=== PATIENT | male | born 1950 | race Caucasian/White ===

== ENCOUNTER 2019-05-29 09:22 | Inpatient (IN) | payer MEDICARE ==
[2019-05-29] MEDS ORDERED: SODIUM CHLORIDE 0.9% 1,000 ML IV STA (10:08)
--- NOTE | 2019-05-29 10:11 | ED ---
General Adult HPI - General Chief complaint: Altered Mental Status Stated complaint: seizure vs stroke Time Seen by Provider: 05/29/19 09:30 Source: patient, EMS Mode of arrival: EMS Limitations: no limitations - History of Present Illness Initial comments: Dictation was produced using [employer] dictation software. please excuse any gramm atical, word or spelling errors. Chief Complaint: 68-year-old male presents after episode of syncope. History of Present Illness: 68-year-old man is brought in by EMS. Experience in episode of syncope. Patient is brought in by family members. reports that they went for a walk for approximately 20 minutes. They came back only patient is sitting on the couch. He was then noted to have episode where he became stiff and his right face twitching. Patient denies any head trauma. According to patient was a little confused after he came back to. He was unconscious for approximately 1 minute. Patient has no history of seizures. Patient has no complaints at this time. Denies any headache. Denies any numbness tingling or paresthesias. The ROS documented in this emergency department record has been reviewed and confirmed by me. Those systems with pertinent positive or negative responses have been documented in the HPI. All other systems are other negative and/or noncontributory. PHYSICAL EXAM: General Impression: Alert and oriented x3, not in acute distress HEENT: Normocephalic atraumatic, extra-ocular movements intact, pupils equal and reactive to light bilaterally, mucous membranes moist, no lateral tongue avulsions Cardiovascular: Heart regular rate and rhythm, S1&S2 audible, no murmurs, rubs or gallops Chest: Lungs clear to auscultation bilaterally, no rhonchi, no wheeze, no rales Abdomen: Bowel sounds present, abdomen soft, non-tender, non-distended, no organomegaly Musculoskeletal: Pulses present and equal in all extremities, no peripheral edema Motor: no focal deficits noted Neurological: CN II-XII grossly intact, no focal motor or sensory deficits noted Skin: Intact with no visualized rashes Psych: Normal affect and mood ED course: 68-year-old male presents with syncope. There is concern of dysrhythmia versus seizure. As upon arrival are within acceptable limits. EKG appears benign at the moment. No old EKG for comparison. Patient has cardiac history. He is a history of coronary artery bypass grafting Given the patient had a postictal state is more concerned of seizure versus syncope. Laboratory evaluation obtained. CBC is unremarkable. Coag panel unremarkable. Metabolic panel shows mild acidosis without an anion gap. Lactic acid is 2.1 and glucose of 217. Urinalysis shows 6 red blood cells. Patient is well-appearing at this time. Given patient's clinical presentation it's concerning for new onset seizure versus syncope secondary to cardiac etiology given significant cardiac history. Believe patient would benefit from inpatient admission at this time for neurology consultation and cardiac monitoring. Patient is agreeable to plan. Pending discussion the Dr. Martinez. EKG interpretation: Ventricular rate 83, normal sinus rhythm, OH interval 194, care is 100, QTC 453. No OH prolongation, no QTC prolongation, no ST or T-wave changes noted. . Overall, this EKG is unremarkable - Related Data Home Medications Medication Instructions Recorded Confirmed Aspirin EC [Ecotrin] 162.5 mg PO DAILY 05/29/19 05/29/19 Lisinopril [Zestril] 5 mg PO DAILY 05/29/19 05/29/19 Metoprolol Tartrate [Lopressor] 50 mg PO BID 05/29/19 05/29/19 Simvastatin [Zocor] 40 mg PO HS 05/29/19 05/29/19 glipiZIDE [Glucotrol] 5 mg PO AC-BRKFST 05/29/19 05/29/19 metFORMIN HCL 1,000 mg PO BID 05/29/19 05/29/19 Allergies Allergy/AdvReac Type Severity Reaction Status Date / Time adhesive tape AdvReac Rash/Hives Verified 05/29/19 09:39 codeine AdvReac Rash/Hives Verified 05/29/19 09:39 Review of Systems ROS Statement: Those systems with pertinent positive or pertinent negative responses have been documented in the HPI. ROS Other: All systems not noted in ROS Statement are negative. Past Medical History Past Medical History: Diabetes Mellitus, Hypertension History of Any Multi-Drug Resistant Organisms: None Reported Past Surgical History: Coronary Bypass/CABG Past Psychological History: No Psychological Hx Reported Smoking Status: Never smoker Past Alcohol Use History: Occasional Past Drug Use History: None Reported General Exam Limitations: no limitations Course Vital Signs 05/29/19 05/29/19 05/29/19 09:30 09:36 09:40 Temperature 98.4 F Pulse Rate 82 84 80 Respiratory 18 Rate Blood Pressure 145/83 145/83 166/85 O2 Sat by Pulse 98 95 97 Oximetry 05/29/19 05/29/19 05/29/19 10:10 10:20 10:30 Temperature Pulse Rate 78 78 Respiratory Rate Blood Pressure 152/77 152/77 152/77 O2 Sat by Pulse 97 96 Oximetry Medical Decision Making - Lab Data Result diagrams: 05/29/19 09:33 05/29/19 09:33 Lab Results 05/29/19 05/29/19 05/29/19 Range/Units 09:33 09:33 09:33 WBC 7.2 (3.8-10.6) k/uL RBC 4.48 (4.30-5.90) m/uL Hgb 13.8 (13.0-17.5) gm/dL Hct 41.8 (39.0-53.0) % MCV 93.2 (80.0-100.0) fL MCH 30.7 (25.0-35.0) pg MCHC 33.0 (31.0-37.0) g/dL RDW 13.6 (11.5-15.5) % Plt Count 186 (150-450) k/uL Neutrophils % 71 % Lymphocytes % 18 % Monocytes % 6 % Eosinophils % 3 % Basophils % 0 % Neutrophils # 5.1 (1.3-7.7) k/uL Lymphocytes # 1.3 (1.0-4.8) k/uL Monocytes # 0.4 (0-1.0) k/uL Eosinophils # 0.2 (0-0.7) k/uL Basophils # 0.0 (0-0.2) k/uL PT 9.8 (9.0-12.0) sec INR 0.9 (<1.2) APTT 23.0 (22.0-30.0) sec Sodium 139 (137-145) mmol/L Potassium 4.8 (3.5-5.1) mmol/L Chloride 108 H (98-107) mmol/L Carbon Dioxide 21 L (22-30) mmol/L Anion Gap 10 mmol/L BUN 21 H (9-20) mg/dL Creatinine 1.16 (0.66-1.25) mg/dL Est GFR (CKD-EPI)AfAm 76 (>60 ml/min/1.73 sqM) Est GFR (CKD-EPI)NonAf 65 (>60 ml/min/1.73 sqM) Glucose 217 H (74-99) mg/dL Plasma Lactic Acid Terry (0.7-2.0) mmol/L Calcium 9.0 (8.4-10.2) mg/dL Total Bilirubin 0.5 (0.2-1.3) mg/dL AST 59 (17-59) U/L ALT 63 (21-72) U/L Alkaline Phosphatase 55 (38-126) U/L Troponin I (0.000-0.034) ng/mL Total Protein 6.2 L (6.3-8.2) g/dL Albumin 4.0 (3.5-5.0) g/dL Urine Color Urine Appearance (Clear) Urine pH (5.0-8.0) Ur Specific [place] (1.001-1.035) Urine Protein (Negative) Urine Glucose (UA) (Negative) Urine Ketones (Negative) Urine Blood (Negative) Urine Nitrite (Negative) Urine Bilirubin (Negative) Urine Urobilinogen (<2.0) mg/dL Ur Leukocyte Esterase (Negative) Urine RBC (0-5) /hpf Urine WBC (0-5) /hpf Ur Squamous Epith Cells (0-4) /hpf Urine Bacteria (None) /hpf Hyaline Casts (0-2) /lpf Urine Mucus (None) /hpf 05/29/19 05/29/19 05/29/19 Range/Units 09:33 09:33 10:59 WBC (3.8-10.6) k/uL RBC (4.30-5.90) m/uL Hgb (13.0-17.5) gm/dL Hct (39.0-53.0) % MCV (80.0-100.0) fL MCH (25.0-35.0) pg MCHC (31.0-37.0) g/dL RDW (11.5-15.5) % Plt Count (150-450) k/uL Neutrophils % % Lymphocytes % % Monocytes % % Eosinophils % % Basophils % % Neutrophils # (1.3-7.7) k/uL Lymphocytes # (1.0-4.8) k/uL Monocytes # (0-1.0) k/uL Eosinophils # (0-0.7) k/uL Basophils # (0-0.2) k/uL PT (9.0-12.0) sec INR (<1.2) APTT (22.0-30.0) sec Sodium (137-145) mmol/L Potassium (3.5-5.1) mmol/L Chloride (98-107) mmol/L Carbon Dioxide (22-30) mmol/L Anion Gap mmol/L BUN (9-20) mg/dL Creatinine (0.66-1.25) mg/dL Est GFR (CKD-EPI)AfAm (>60 ml/min/1.73 sqM) Est GFR (CKD-EPI)NonAf (>60 ml/min/1.73 sqM) Glucose (74-99) mg/dL Plasma Lactic Acid Terry 2.1 H* (0.7-2.0) mmol/L Calcium (8.4-10.2) mg/dL Total Bilirubin (0.2-1.3) mg/dL AST (17-59) U/L ALT (21-72) U/L Alkaline Phosphatase (38-126) U/L Troponin I <0.012 (0.000-0.034) ng/mL Total Protein (6.3-8.2) g/dL Albumin (3.5-5.0) g/dL Urine Color Yellow Urine Appearance Clear (Clear) Urine pH 5.5 (5.0-8.0) Ur Specific [place] 1.023 (1.001-1.035) Urine Protein 2+ H (Negative) Urine Glucose (UA) 1+ H (Negative) Urine Ketones 1+ H (Negative) Urine Blood Trace H (Negative) Urine Nitrite Negative (Negative) Urine Bilirubin Negative (Negative) Urine Urobilinogen <2.0 (<2.0) mg/dL Ur Leukocyte Esterase Negative (Negative) Urine RBC 6 H (0-5) /hpf Urine WBC 1 (0-5) /hpf Ur Squamous Epith Cells <1 (0-4) /hpf Urine Bacteria Rare H (None) /hpf Hyaline Casts 8 H (0-2) /lpf Urine Mucus Moderate H (None) /hpf Disposition Clinical Impression: Syncope Disposition: ADMITTED IP TO THIS HOSP Condition: Fair Referrals: Luis Green DO [STAFF PHYSICIAN] - 1-2 days Decision Time: 12:32
[2019-05-29 10:32] LABS: Basophils % (A) 0 %; Eosinophils # (A) 0.2 k/uL (0-0.7); Eosinophils % (A) 3 %; HCT 41.8 % (39.0-53.0); HGB 13.8 gm/dL (13.0-17.5); Lymphocytes # (A) 1.3 k/uL (1.0-4.8); Lymphocytes % (A) 18 %; MCH 30.7 pg (25.0-35.0); MCV 93.2 fL (80.0-100.0); Mean Platelet Volume 8.6; Monocytes # (A) 0.4 k/uL (0-1.0); Monocytes % (A) 6 %; Neutrophils # (A) 5.1 k/uL (1.3-7.7); Neutrophils % (A) 71 %; Platelet Count 186 k/uL (150-450); RBC 4.48 m/uL (4.30-5.90); RDW 13.6 % (11.5-15.5); WBC 7.2 k/uL (3.8-10.6)
[2019-05-29 10:40] LABS: INR 0.9 (<1.2); Prothrombin Time 9.8 sec (9.0-12.0)
[2019-05-29 10:42] LABS: Potassium 4.8 mmol/L (3.5-5.1); Total Bilirubin 0.5 mg/dL (0.2-1.3); Total Protein 6.2 g/dL (6.3-8.2)
--- NOTE | 2019-05-29 11:59 | CT ---
EXAMINATION TYPE: CT brain wo con DATE OF EXAM: 05/29/2019 COMPARISON: None available HISTORY: 68-year-old male with syncope, Seizure vs Stroke TECHNIQUE: Examination was done in axial plane without intravenous contrast. Coronal and sagittal r econstructions performed. CT DLP: 1087.4 mGycm Automated exposure control for dose reduction was used. FINDINGS: There is no evidence of acute intracranial hemorrhage, acute ischemic changes, mass, mass-effect, or extra-axial fluid collection. There is no effacement of cerebral sulci or basal subarachnoid cister ns. There is no hydrocephalus. There is no midline shift. Carranza-white matter distinction is preserv ed. Generalized supratentorial volume loss with moderate patchy white matter hypodensities in both cerebr al hemispheres. Mild atherosclerotic calcifications within the V4 vertebral arteries and the carotid siphons. Scattered trace mucosal thickening right maxillary sinus and ethmoid air cells. Mastoid air cells wel l pneumatized. Orbits and globes are intact. IMPRESSION: Mild atrophy and moderate patchy changes of chronic small vessel ischemic disease. No acute intracran ial abnormality seen.
--- NOTE | 2019-05-29 12:04 | XR ---
EXAMINATION TYPE: XR chest 2V DATE OF EXAM: 05/29/2019 COMPARISON: NONE HISTORY: Shortness of breath TECHNIQUE: Frontal and lateral views of the chest are obtained. FINDINGS: Scattered senescent parenchymal changes noted. Hyperinflation compatible with COPD. No evidence for infiltrate. No evidence for atelectasis. Heart size is stable. Mediastinal structures are stable and grossly unremarkable. No evidence for hilar prominence. Degenerative changes dorsal spine. IMPRESSION: 1. No evidence for acute pulmonary disease.
[2019-05-29 12:15] LABS: Appearance,Urine Clear (Clear); Bacteria,Urine Rare /hpf; Bilirubin,Urine Negative (Negative); Blood,Urine Trace (Negative); Color,Urine Yellow; Glucose,Urine (UA) 1+ (Negative); Hyaline Casts,Urine 8 /lpf (0-2); Ketones,Urine 1+ (Negative); Leukocyte Esterase,Urine Negative (Negative); Mucus,Urine Moderate /hpf; Nitrite,Urine Negative (Negative); PH, Urine 5.5 (5.0-8.0); Protein,Urine 2+ (Negative); RBC,Urine 6 /hpf (0-5); Specific Gravity,Urine 1.023 (1.001-1.035); Squamous Epithelial Cell,Urine <1 /hpf (0-4); Urobilinogen,Urine <2.0 mg/dL (<2.0); WBC,Urine 1 /hpf (0-5)
[2019-05-29] MEDS ORDERED: NALOXONE 0.4 MG/ML 1 ML VIAL IV PRN (12:27)
[2019-05-29] MEDS ORDERED: LORazepam 2 MG/ML INJ IV PRN (12:29)
[2019-05-29 17:02] LABS: Glucose,Whole Blood 134 mg/dL (75-99)
--- NOTE | 2019-05-29 17:07 | P.CNNES ---
History of Present Illness Consult date: 05/29/19 Requesting physician: Rob Gray Reason for Consult: Possible seizure Chief complaint: "I passed out" History of Present Illness: This is a 68 RH male h/o CAD s/p CABG 13 years ago followed by cardiology in [place] and [place]. Patient on day of admission had gone for a walk for 20 minutes. He and his came home and watched TV. He was sitting on a recliner. He reached for his phone, suddenly felt lightheaded without vertigo, then lost consciousness. witnessed stiffening and "tremoring" of the body, but not classic tonic- clonic fashion. There was mentioning of possible right facial twitching in the ER note, but does not corroborate the above during my history taking. There was not tongue biting, bowel/bladder incontinence or post-ictal confusion. The event lasted a minute. When he came to his senses, he was able to immediately recognize his and try to make sense of what had just happened. His describes as if he were waking up from a deep sleep, but she would not say that he was confused upon awakening. He denies h/o head trauma or CO TEACHER infection. No previous history of seizure. Review of Systems I have performed a 14-point organ ROS with patient that are negative except as per HPI. Past Medical History Past Medical History: Diabetes Mellitus, Hypertension History of Any Multi-Drug Resistant Organisms: None Reported Past Surgical History: Coronary Bypass/CABG Past Psychological History: No Psychological Hx Reported Smoking Status: Former smoker Past Alcohol Use History: Occasional Past Drug Use History: None Reported Medications and Allergies Home Medications Medication Instructions Recorded Confirmed Type Aspirin EC [Ecotrin] 162.5 mg PO DAILY 05/29/19 05/29/19 History Lisinopril [Zestril] 5 mg PO DAILY 05/29/19 05/29/19 History Metoprolol Tartrate [Lopressor] 50 mg PO BID 05/29/19 05/29/19 History Simvastatin [Zocor] 40 mg PO HS 05/29/19 05/29/19 History glipiZIDE [Glucotrol] 5 mg PO AC-BRKFST 05/29/19 05/29/19 History metFORMIN HCL 1,000 mg PO BID 05/29/19 05/29/19 History Allergies Allergy/AdvReac Type Severity Reaction Status Date / Time adhesive tape AdvReac Rash/Hives Verified 05/29/19 09:39 codeine AdvReac Rash/Hives Verified 05/29/19 09:39 Physical Examination - Vital Signs Vital Signs: Vital Signs Temp Pulse Resp BP Pulse Ox 05/29/19 16:00 18 05/29/19 10:30 152/77 05/29/19 10:20 78 152/77 96 05/29/19 10:10 78 152/77 97 05/29/19 09:40 80 166/85 97 05/29/19 09:36 98.4 F 84 18 145/83 95 05/29/19 09:30 82 145/83 98 Intake and Output 05/29/19 05/29/19 05/29/19 06:59 14:59 22:59 Intake Total 160 Balance 160 Intake: Intake, IV Titration 160 Amount Sodium Chloride 0.9% 1, 160 000 ml @ 20 mls/hr IV . Q24H NAYELI Rx#:[id number] Other: Weight 99.79 kg Gen NAD Pleasant and cooperative HEENT NCAT Sclera without icterus O/P clear wo tongue laceration Neck Supple No carotid bruit Cor RRR no m/r/g Lungs CTAB Abd Soft NTND +BS Ext Warm to touch No edema Neuro MS A+Ox4 Normal fluency Able to follow all commands CN PERRL VFF no APD EOMI no nystagmus or LIAM No facial asymmetry Masseter's symm etric Hearing intact to normal voice bilaterally Speech not dysarthric Equal elevation of palate Tongue midline Sym shrug and SCM bilaterally Motor Normal bulk/tone No pronator drift or tremors Strength 5/5 sym throughout Sens Intact to LT x4 No neglect Coord No dysmetria on FTN bilaterally DTRs 2+/4 sym throughout Toes downgoing bilaterally No clonus at achilles Gait Deferred Results - Laboratory Findings CBC and BMP: 05/29/19 09:33 05/29/19 09:33 Abnormal Lab Findings: Abnormal Labs 05/29/19 05/29/19 05/29/19 09:33 09:33 10:59 Chloride 108 H Carbon Dioxide 21 L BUN 21 H Glucose 217 H Plasma Lactic Acid Terry 2.1 H* Total Protein 6.2 L Urine Protein 2+ H Urine Glucose (UA) 1+ H Urine Ketones 1+ H Urine Blood Trace H Urine RBC 6 H Urine Bacteria Rare H Hyaline Casts 8 H Urine Mucus Moderate H - Diagnostic Findings Additional findings: CT Head wo cont 05/29/19. No ICH. Nil acute. I have reviewed neuroimages myself. Assessment and Plan Assessment: Episode of unexplained loss of consciousness, favor convulsive syncope vs less l ikely epileptic seizure based on history. Other medical causes of syncope should be ruled out Plan: -MRI Brain wo natalie -Sleep/wake EEG -Given patient's cardiac history, would recommend cardiology consult -Other medical work-up for syncope deferred to primary team/internal medicine -Seizure precautions -Discussed that for the first single new-onset unprovoked seizure (if he indeed did have a seizure), provided that MRI Brain and EEG are normal, the chance of the patient having recurrent seizure would be <50%, in which case most neurologists would not commit patient to long-term AED therapy. However, patient continues to have recurrent unprovoked seizure activity, then AED therapy would be indicated. -Also discussed that every state has some type of law restricting seizure and driving. This also extends to unexplained loss of consciousness, which so far is this patient's case pending further medical work-up. Same common sense applies to engaging in any activity that may endanger patient and/or others should he have recurrent seizure activity. Patient and voice understaning, though they are appropriately concerned about how to get their RV back to [place] from [place] as they are snowbirds -d/w patient and in detail. All questions answered. Thank you for this consultation. Please call with ?. Time with Patient: Greater than 30 (Time spent in direct patient care, greater than 50% of which was spent in [id number] counseling and coordination of care: 70 minutes.)
[2019-05-29] MEDS: SODIUM CHLORIDE 0.9% 1,000 ML IV SCH (18:07)
--- NOTE | 2019-05-29 18:47 | HP ---
HISTORY AND PHYSICAL CHIEF COMPLAINT: Syncope and possible seizure. HISTORY OF PRESENT ILLNESS: This is another admission for this 68-year-old white male. He was sitting and looking at his cellphone and the next thing he remembers was waking up on the floor. His is present. He became rigid, but did not have tonic colonic movements. He also did not injure his tongue or lips and he was not incontinent. He was not diaphoretic. He had no symptoms prior to this and when he woke up, he did not have any of the symptoms and he seemed to have a fairly good memory of the events leading up to this episode. He denied any chest pain, palpitations, etc. He is diabetic, but his blood sugar is usually high. In the emergency room, his evaluation was essentially negative. He has a history of cardiac disease and he had a 4-vessel coronary artery bypass done here in the past. He has had no other symptoms. REVIEW OF SYSTEMS: He has had no followup neurologic problems, change in vision hearing, cough, hemoptysis, chest pain, pulmonary disease, pleurisy, angina, infarctions, orthopnea, PND, abdominal pain, diarrhea, melena, hematochezia, hematemesis, nausea, liver disease, renal failure, frequency, urgency and dysuria, and incontinence, etc. Past medical history, family history, personal and social history reveals that he is not allergic to any medication. He is on Lopressor 50 mg twice a day, metformin 1000 mg twice a day, glipizide 5 mg once a day, lisinopril 5 mg once a day, and aspirin. The only surgery he has had is CABG. He has a family history of heart disease, but his mother had valvular disease. He does not smoke. PHYSICAL EXAM: Blood pressure is 152/77 with a pulse of 102 and regular. Respirations of 18 and a pulse 78. He is afebrile. In general, he appeared to be slightly overweight, in no acute distress. Skin color is normal. Skin is warm, dry. Lymph nodes not enlarged. Head, ears, eyes, nose, mouth, and throat were normal. Neck veins are not distended. Thyroid was not enlarged. Carotids normal and no bruits. Chest is clear to auscultation and percussion. Cardiac exam demonstrated normal sinus rhythm and no murmurs or extra sounds. Abdomen is soft, nontender without visceromegaly or masses. Extremities normal. Neurologically he is intact. He is awake and alert. He is admitted to the hospital with diagnoses of: ADMITTING DIAGNOSES: 1. Syncopal episode, etiology unknown. 2. Rule out new onset seizure. 3. Rule out cardiac arrhythmia. 4. History of coronary artery disease status post coronary artery bypass grafting. 5. Noninsulin dependent diabetes mellitus. PLAN: 1. Bed rest. 2. IV fluids. 3. Troponin. 4. Echocardiogram. 5. Carotid duplex imaging. 6. EEG. 7. MRI of the brain. 8. Neurology consult. MMODL / IJN: [id number] /
--- NOTE | 2019-05-29 19:27 | MR ---
EXAMINATION TYPE: MR brain wo con DATE OF EXAM: 05/29/2019 COMPARISON: CT brain from earlier today HISTORY: New onset seizure TECHNIQUE: Multiplanar, multisequence imaging of the brain and brainstem is performed without IV cont rast. FINDINGS: Diffusion weighted images demonstrate no evidence of a recent infarct or other diffusion abnormality. There is no worrisome extra-axial fluid collection. Ventricular and sulcal prominence is redemonstrat ed. There are multiple scattered foci of T2 hyperintensity throughout the white matter bilaterally wi th some confluent areas noted. Finding presumed on the basis of product of proximal vessel ischemic c hange in patient of this age. T2 Star weighted images show no suspicious intraparenchymal blood produ ct. T2 coronal weighted images show hippocampal gyri to appear symmetric and felt within normal limit s. Midline structures demonstrate normal morphology. The craniocervical junction appears within normal limits. Normal vascular flow voids are present. The visualized sinuses are clear and the globes are i ntact. IMPRESSION: There is [id number] diffuse cerebral atrophy and moderate to advanced chronic small vessel ischemic change felt present.
[2019-05-29 20:08] LABS: Glucose,Whole Blood 178 mg/dL (75-99)
[2019-05-29] MEDS ORDERED: ATORVASTATIN 20 MG TAB PO SCH (21:00)
[2019-05-29] MEDS: METOPROLOL TARTRATE 50 MG TAB PO SCH (21:21)
[2019-05-29] MEDS: glipiZIDE 5 MG TAB PO SCH (21:21)
[2019-05-29] MEDS: metFORMIN 500 MG TAB PO SCH (21:21)
[2019-05-29] MEDS: LISINOPRIL 5 MG TAB PO SCH (21:21)
[2019-05-29] MEDS: INSULIN ASPART (NovoLOG) 100 UNIT/ML VIAL SQ SCH (21:22)
[2019-05-30 02:51] LABS: Cholesterol 152 mg/dL (<200); HDL Cholesterol 42 mg/dL (40-60); LDL Cholesterol,Calculated 73 mg/dL (0-99); Triglycerides 184 mg/dL (<150)
[2019-05-30 07:00] LABS: Glucose,Whole Blood 149 mg/dL (75-99)
[2019-05-30] MEDS: METOPROLOL TARTRATE 50 MG TAB PO SCH ×2 (08:40→21:14)
[2019-05-30] MEDS: INSULIN ASPART (NovoLOG) 100 UNIT/ML VIAL SQ SCH ×4 (08:41→21:59)
[2019-05-30] MEDS: metFORMIN 500 MG TAB PO SCH ×2 (08:41→18:18)
[2019-05-30] MEDS: LISINOPRIL 5 MG TAB PO SCH (08:41)
[2019-05-30] MEDS: glipiZIDE 5 MG TAB PO SCH (08:41)
[2019-05-30] MEDS ORDERED: ASPIRIN 81 MG PO SCH (09:00)
[2019-05-30 11:31] LABS: Glucose,Whole Blood 111 mg/dL (75-99)
[2019-05-30] MEDS: SODIUM CHLORIDE 0.9% 1,000 ML IV SCH (14:02)
--- NOTE | 2019-05-30 14:52 | P.PN ---
Subjective Progress Note Date: 05/30/19 Principal diagnosis: Convulsive syncope Had run of Vtach last noc. Transferring to cardiac unit. No new neuro c/o. MRI Brain and EEG done. Objective - Vital Signs Vital signs: Vital Signs Temp 98.1 F 05/30/19 12:00 Pulse 65 05/30/19 12:00 Resp 17 05/30/19 12:00 BP 125/63 05/30/19 12:00 Pulse Ox 97 05/30/19 12:00 Intake & Output 05/29/19 05/30/19 05/30/19 18:59 06:59 18:59 Intake Total 160 520 Balance 160 520 Weight 99.79 kg Intake: Intake, IV Titration 160 100 Amount Sodium Chloride 0.9% 1, 160 100 000 ml @ 20 mls/hr IV . Q24H NAYELI Rx#:[id number] Oral 420 Other: # Voids 3 - Exam Gen NAD Pleasant and cooperative MS A+Ox4 Normal speech CN II-XII grossly intact no nystagmus Motor Normal bulk/tone No drift or tremors Strength 5/5 sym throughout Sens Intact to LT x4 Coord No dysmetria on FTN bilaterally DTRs 2+/4 sym throughout Gait Deferred - Labs CBC & Chem 7: 05/29/19 09:33 05/29/19 09:33 Labs: Abnormal Lab Results - Last 24 Hours (Table) 05/29/19 05/29/19 05/30/19 Range/Units 16:59 20:06 02:17 POC Glucose (mg/dL) 134 H 178 H (75-99) mg/dL Triglycerides 184 H (<150) mg/dL 05/30/19 05/30/19 Range/Units 06:59 11:29 POC Glucose (mg/dL) 149 H 111 H (75-99) mg/dL Triglycerides (<150) mg/dL - Imaging and Cardiology MRI - head: report reviewed (No intra or extraxial lesion. No CVA. Moderate subcortical vascular burden. Nil acute.) EEG 05/30/19. Normal awake EEG. Assessment and Plan Assessment: Episode of unexplained loss of consciousness, favor convulsive syncope vs less likely epileptic seizure based on history. Other medical causes of syncope should be ruled out. Had episode of Vtach that may explain his syncope Plan: -MRI Brain wo natalie unrevealing -EEG unrevealing -Had VTach. Appreciate cardiology's input and management -Other medical work-up for syncope deferred to primary team/internal medicine -No activity restrictions from a neuro standpoint as I do not have a primary neurological diagnosis. Defer to primary team/cardiology on further work-up and any activity restrictions as they deem necessary -d/w patient and in detail. All questions answered. -No other neuro recs at this time. Will revisit prn. Thank you again for this consultation. Please call with ?. Time with Patient: Less than 30 (Time spent in direct patient care, greater than 50% of which was spent in [id number] counseling and coordination of care: 25 minutes)
--- NOTE | 2019-05-30 14:53 | EEG ---
ELECTROENCEPHALOGRAM REPORT DATE OF TESTIN05/30/2019 CLINICAL PROBLEM: Syncopal episode with stiffening and "tremoring" of the body. EEG was requested to rule out epileptiform activity. TYPE OF RECORDING: Bedside tracing using the 10-20 international electrode placement system. No sedation was given prior to the beginning of this recording. FINDINGS: At the beginning of this recording, there is a symmetric posterior alpha rhythm that attenuates on eye opening and returns upon eye closure. There are scattered EMG artifacts that correspond to patient's facial and body movements. There are also eye blink artifacts. Photic stimulation elicits a symmetric driving response. Hyperventilation was not performed in this recording. There is no definitive sleep architecture seen. There is no background asymmetry, ictal, or interictal patterns appreciated. IMPRESSION: This is a normal awake electroencephalogram without background asymmetry or epileptiform discharges. Clinical correlation is advised. TATE / BON: [id number] / MTDD
--- NOTE | 2019-05-30 14:59 | PN ---
PROGRESS NOTE CHIEF COMPLAINT: Syncopal episode. HISTORY OF PRESENT ILLNESS: During the night this gentleman had a run of V-tach. Given that his syncopal episode prior to admission was quite atypical for a seizure, it is more likely that it was caused by an arrhythmia. He had no aura, tonic colonic movements, incontinence, amnesia for the event, injury to the oral cavity, etc. PHYSICAL EXAM: Chest is clear. The cardiac exam is normal. The abdomen is soft, nontender. IMPRESSION: Cardiac arrhythmia with ventricular tachycardia. PLAN: Continue cardiac workup and await evaluation by Cardiology. MMODL / IJN: [id number] /
--- NOTE | 2019-05-30 15:00 | P.CRDCN ---
History of Present Illness History of present illness: This is a pleasant 68-year old male past medical history significant for coronary artery disease s/p bypass grafting 2005 secondary to 90% distal left main disease, hypertension, diabetes mellitus and dyslipidemia. He follows regularly with a jack setter in [place]. We have been asked him in consultation secondary to syncopal episode. The patient and his are sitting down he was playing on his phone he states he felt lightheaded and the medics. He remembers is waking up due to his 's voice. Per the he lost consciousness briefly and was having all of her body tremors. His episode of unresponsiveness lasted for approximately 1 minute. She states immediately upon waking up he was disoriented mildly and was unaware what had just occurred. By the time EMS arrived he was back to his baseline neurologic function. MRI and brain CT indicated chronic small vessel ischemic changes and cerebral atrophy. Telemetry tracings indicate last night at 0107 he had 11-beat run of monomorphic ventricular tachycardia. Pt was asleep at the time and asymptomatic. He denies ever feeling palpitations in the past. He states he underwent a full cardiology workup one year ago with his jack setter in [place] with a stress test and echocardiogram as far as he knows everything was normal at that time. EKG reveals sinus mechanism, inferior Q wave and poor R-wave progression. No acute ST or T wave abnormalities noted. Chest x-ray is negative for acute cardiopulmonary process. Laboratory data reviewed, TSH 1.78, LDL 73, proBNP 281, magnesium 1.7, d-dimer 0.46, WBC 7.2, hemoglobin 13.8, platelets 186, sodium 139, potassium 4.8, creatinine 1.16, lactic acid on admission 2.1 after IV hydration 1.5, cardiac enzymes negative 1. Current cardiac medications include aspirin 162.5 mg daily, lisinopril 5 mg daily, Lopressor 50 mg twice a day and simvastatin 40 mg daily. At the time of my exam: CONSTITUTIONAL: Denies fever. Denies chills. EYES: Denies blurred vision. Denies vision changes. Denies eye pain. EARS, NOSE, MOUTH & THROAT: Denies headache. Denies sore throat. Denies ear pain. CARDIOVASCULAR: Denies chest pain. Denies shortness of breath. Denies orthopnea. Denies PND. Denies palpitations. RESPIRATORY: Denies cough. GASTROINTESTINAL: Denies abdominal pain. Denies diarrhea. Denies constipation. Denies nausea. Denies vomiting. MUSCULOSKELETAL: Denies myalgias. INTEGUMENTARY: Denies pruitis. Denies rash. NEUROLOGIC: Denies numbness. Denies tingling. Denies weakness. PSYCHIATRIC: Denies anxiety. Denies depression. ENDOCRINE: Denies fatigue. Denies weight change. Denies polydipsia. Denies polyurina. GENITOURINARY: Denies burning, hematuria or urgency with micturation. HEMATOLOGIC: Denies history of anemia. Denies bleeding. Blood pressure 125/63 heart rate 65 afebrile maintaining oxygen saturation on room air GENERAL: This is a 68-year-old male in no apparent distress at the time of my examination. HEENT: Head is atraumatic, normocephalic. Pupils are equal, round. Sclerae anicteric. Conjunctivae are clear. Mucous membranes of the mouth are moist. Neck is supple. There is no jugular venous distention. No carotid bruit is heard. LUNGS: Clear to auscultation no wheezes, rales or rhonchi. No chest wall tenderness is noted on palpation or with deep breathing. HEART: Regular rate and rhythm without murmurs, rubs or gallops. S1 and S2 heard. ABDOMEN: Soft, nontender. Bowel sounds are heard. No organomegaly noted. EXTREMITIES: No evidence of peripheral edema and no calf tenderness noted. VASCULAR: Radial and dorsalis pedis pulses palpated, no evidence of clubbing. NEUROLOGIC: Patient is awake, alert and oriented x3. ASSESSMENT Syncope with possible seizure Nonsustained monomorphic ventricular tachycardia History of coronary artery disease status post bypass grafting PLAN Obtain 2-D echocardiogram and Doppler study to assess cardiac structure and function. We will ask Dr. Zavala to see the patient for evaluation of arrhythmia. Transfer the patient to cardiac stepdown unit for closer telemetry monitoring. We will continue to follow closely and make further recommendations based on clinical course. Thank you kindly for this consultation. Nurse Practitioner note has been reviewed, I agree with a documented findings and plan of care. Patient was seen and examined. Past Medical History Past Medical History: Diabetes Mellitus, Hypertension History of Any Multi-Drug Resistant Organisms: None Reported Past Surgical History: Coronary Bypass/CABG Past Psychological History: No Psychological Hx Reported Smoking Status: Former smoker Past Alcohol Use History: Occasional Past Drug Use History: None Reported Medications and Allergies Home Medications Medication Instructions Recorded Confirmed Type Aspirin EC [Ecotrin] 162.5 mg PO DAILY 05/29/19 05/29/19 History Lisinopril [Zestril] 5 mg PO DAILY 05/29/19 05/29/19 History Metoprolol Tartrate [Lopressor] 50 mg PO BID 05/29/19 05/29/19 History Simvastatin [Zocor] 40 mg PO HS 05/29/19 05/29/19 History glipiZIDE [Glucotrol] 5 mg PO AC-BRKFST 05/29/19 05/29/19 History metFORMIN HCL 1,000 mg PO BID 05/29/19 05/29/19 History Allergies Allergy/AdvReac Type Severity Reaction Status Date / Time adhesive tape AdvReac Rash/Hives Verified 05/29/19 09:39 codeine AdvReac Rash/Hives Verified 05/29/19 09:39 Physical Exam Vitals: Vital Signs Temp Pulse Resp BP Pulse Ox 05/30/19 12:00 98.1 F 65 17 125/63 97 05/30/19 05:48 97.6 F 65 18 128/73 98 05/30/19 00:00 78 18 05/29/19 21:42 98.4 F 78 18 171/80 98 05/29/19 16:00 18 Intake and Output 05/29/19 05/30/19 05/30/19 22:59 06:59 14:59 Intake Total 520 Balance 520 Intake: Intake, IV Titration 100 Amount Sodium Chloride 0.9% 1, 100 000 ml @ 20 mls/hr IV . Q24H [facility] Rx#:[id number] Oral 420 Other: # Voids 3 3 Results 05/29/19 09:33 05/29/19 09:33 Lipids 05/30/19 Range/Units 02:17 Triglycerides 184 H (<150) mg/dL Cholesterol 152 (<200) mg/dL HDL Cholesterol 42 (40-60) mg/dL Current Medications Generic Name Dose Route Start Last Admin Trade Name Freq PRN Reason Stop Dose Admin Aspirin 162 mg 05/30/19 09:00 05/30/19 08:40 Aspirin PO 162 mg DAILY [facility] Administration Atorvastatin Calcium 20 mg 05/29/19 21:00 05/29/19 21:21 Lipitor PO 20 mg HS N[facility] Administration Glipizide 5 mg 05/29/19 18:15 05/30/19 08:41 Glucotrol PO 5 mg AC-BRKFST N[facility] Administration Sodium Chloride 1,000 mls @ 20 mls/hr 05/29/19 12:30 05/29/19 18:07 Saline 0.9% IV Not Given .Q24H [facility] Insulin Aspart 0 unit 05/29/19 21:00 05/30/19 08:41 Novolog SQ Not Given ACHS COUNT INCLUDES THE [facility] Protocol Lisinopril 5 mg 05/29/19 18:15 05/30/19 08:41 Zestril PO 5 mg DAILY [facility] Administration Lorazepam 2 mg 05/29/19 12:29 Ativan IV 06/04/19 12:30 ONCE PRN Seizures Metformin HCl 1,000 mg 05/29/19 21:00 05/30/19 08:41 Glucophage PO 1,000 mg BID-W/MEALS [facility] Administration Metoprolol Tartrate 50 mg 05/29/19 21:00 05/30/19 08:40 Lopressor PO 50 mg BID [facility] Administration Naloxone HCl 0.2 mg 05/29/19 12:27 Narcan IV Q2M PRN Opioid Reversal Intake and Output 05/29/19 05/30/19 05/30/19 22:59 06:59 14:59 Intake Total 520 Balance 520 Intake: Intake, IV Titration 100 Amount Sodium Chloride 0.9% 1, 100 000 ml @ 20 mls/hr IV . Q24H COUNT INCLUDES THE [facility] Rx#:[id number] Oral 420 Other: # Voids 3 3 05/29/19 09:33 05/29/19 09:33
[2019-05-30] MEDS: ACETAMINOPHEN TAB 325 MG TAB PO PRN (16:28)
--- NOTE | 2019-05-30 16:33 | US ---
EXAMINATION TYPE: US carotid duplex BILAT DATE OF EXAM: 05/30/2019 COMPARISON: NONE CLINICAL HISTORY: lightheadedness then syncope.; diabetic, CAD/prior CABG EXAM MEASUREMENTS: RIGHT: Peak Systolic Velocity (PSV) cm/sec ----- Right CCA: 123.8 ----- Right ICA: 104.4 ----- Right ECA: 78.5 ICA/CCA ratio: 0.8 RIGHT: End Diastole cm/sec ----- Right CCA: 23.6 ----- Right ICA: 26.8 ----- Right ECA: 0.0 LEFT: Peak Systolic Velocity (PSV) cm/sec ----- Left CCA: 99.1 ----- Left ICA: 122.0 ----- Left ECA: 252.6 ICA/CCA ratio: 1.4 LEFT: End Diastole cm/sec ----- Left CCA: 20.0 ----- Left ICA: 25.2 ----- Left ECA: 15.6 VERTEBRALS (direction of flow): Right Vertebral: Antegrade Left Vertebral: Antegrade Rhythm: Normal Irregular, mixed/calcified wall plaque noted at bilateral carotid bifurcation, with abnormally elevat ed PSV noted in proximal left ECA. Grayscale, color Doppler, spectral Doppler imaging performed of the carotid arteries. Incidental finding of left thyroid nodules: largest mixed nodule = 1.2 x 1.1 x 0.8cm. Waveform analysis shows no significant stenosis of the proximal internal carotid arteries. IMPRESSION: No hemodynamic significant stenosis of the proximal internal carotid arteries by Doppler criteria, an indirect measurement of carotid stenosis
[2019-05-30 16:38] LABS: Glucose,Whole Blood 157 mg/dL (75-99)
[2019-05-30] MEDS ORDERED: NITROGLYCERIN SL TABS 0.4 MG TAB SUBLINGUAL PRN (17:27)
--- NOTE | 2019-05-30 17:59 | P.CRDCN ---
<Kirstin Reyes - Last Filed: 05/30/19 17:41> History of Present Illness History of present illness: This is Kirstin Reyes PA-C dictating a consult on this patient The patient was interviewed and examined by me as well as by Dr. Zavala Case discussed with Dr. Zavala and he agrees with the plan of care IMPRESSION / ASSESSMENT: Syncope worrisome for ventricular tachyarrhythmia Nonsustained monomorphic VT, irregular CAD status post CABG Preserved LV systolic function by echo Hypertension Dyslipidemia Diabetes, type II PLAN: Recommend coronary angiography to rule out any significant obstructions Plan for EP study after results of coronary angiography Change simvastatin to atorvastatin 40 mg daily Continue beta blockers HPI Patient is a 68-year-old male with a past medical history of CAD status post CABG, hypertension, diabetes, and dyslipidemia who presented after syncopal episode. Patient went for a 20 minute walk with his . Denies having chest pain, palpitations, shortness of breath during the walk. He states he went into the house and sat down to look at his phone and started to feel lightheaded. His noted that his body was stiff, his face was white, he was unrespo nsive, and he was gurgling. She immediately called 911. After about 5 minutes he opened his eyes and new where he was at. He was not confused after the syncopal episode. He had never had an episode like this before. Before his CABG in 2015, she had symptoms of chest pressure and shortness of breath. He denies having any of these symptoms recently. Upon presentation to the emergency department, EKG which showed normal sinus rhythm with Q waves in lead 3. Head CT showed No acute intercranial abnormality. Carotid Doppler showed no significant stenosis. Telemetry monitoring showed one episode of nonsustained wide complex tachycardia, with A-V dissociation noted, irregular, monomorphic, likely nonsustained ventricular tachycardia. Patient seen and examined sitting up at the side of the bed. Denies symptoms of chest pain, palpitations, shortness of breath, or further syncopal episodes. ROS: No fevers, chills or rigors, no cough, phlegm or expectoration, no nausea, vomiting or diarrhea, no hematuria, dysuria, no musculoskeletal complaints, no strokes or seizures, no skin lesions. EXAMINATION: Temperature 90.8F, pulse 70, respirations 18, blood pressure 156/82, oxygen saturation 96% on room air Patient seen and examined resting comfortably in his bed Lungs clear to auscultation bilaterally, no rhonchi, wheezing, crackles Heart is regular, normal S1, S2, no murmurs appreciated No lower extremity edema noted No elevated JVD REVIEW OF LABS, ECG & MEDICAL DATA Preliminary review of echo shows preserved LV function, awaiting final results Initial EKG shows normal sinus rhythm with Q waves in leads 3 Telemetry monitoring showed one episode of nonsustained wide complex tachycardia, with A-V dissociation noted, likely nonsustained ventricular tachycardia. Head CT showed mild atrophy and moderate patchy changes of chronic small vessel disease. No acute intercranial abnormality Carotid Doppler showed no hemodynamic significant stenosis of the proximal internal carotid arteries WBC 7.2, hemoglobin 13.8, potassium 4.8, BUN 21, creatinine 1.16, troponin negative Lipid panel showed total cholesterol 152, triglycerides 184, LDL 73, HDL 42 TSH within normal limits at 1.78 Past Medical History Past Medical History: Diabetes Mellitus, Hypertension History of Any Multi-Drug Resistant Organisms: None Reported Past Surgical History: Coronary Bypass/CABG Past Psychological History: No Psychological Hx Reported Smoking Status: Former smoker Past Alcohol Use History: Occasional Past Drug Use History: None Reported Medications and Allergies Home Medications Medication Instructions Recorded Confirmed Type Aspirin EC [Ecotrin] 162.5 mg PO DAILY 05/29/19 05/29/19 History Lisinopril [Zestril] 5 mg PO DAILY 05/29/19 05/29/19 History Metoprolol Tartrate [Lopressor] 50 mg PO BID 05/29/19 05/29/19 History Simvastatin [Zocor] 40 mg PO HS 05/29/19 05/29/19 History glipiZIDE [Glucotrol] 5 mg PO AC-BRKFST 05/29/19 05/29/19 History metFORMIN HCL 1,000 mg PO BID 05/29/19 05/29/19 History Allergies Allergy/AdvReac Type Severity Reaction Status Date / Time adhesive tape AdvReac Rash/Hives Verified 05/29/19 09:39 codeine AdvReac Rash/Hives Verified 05/29/19 09:39 Physical Exam Vitals: Vital Signs Temp Pulse Resp BP Pulse Ox 05/30/19 17:00 98 F 70 18 156/82 96 05/30/19 12:00 98.1 F 65 17 125/63 97 05/30/19 05:48 97.6 F 65 18 128/73 98 05/30/19 00:00 78 18 05/29/19 21:42 98.4 F 78 18 171/80 98 Intake and Output 05/30/19 05/30/19 05/30/19 06:59 14:59 22:59 Intake Total 600 Balance 600 Intake: Intake, IV Titration 600 Amount Sodium Chloride 0.9% 1, 600 000 ml @ 75 mls/hr IV . [id number] [facility] Rx#:[id number] Other: # Voids 3 Results 05/29/19 09:33 05/29/19 09:33 Lipids 05/30/19 Range/Units 02:17 Triglycerides 184 H (<150) mg/dL Cholesterol 152 (<200) mg/dL HDL Cholesterol 42 (40-60) mg/dL Current Medications Generic Name Dose Route Start Last Admin Trade Name Freq PRN Reason Stop Dose Admin Acetaminophen 650 mg 05/30/19 16:22 05/30/19 16:28 Tylenol Tab PO 650 mg Q6HR PRN Administration Fever and/ or MILD Pain Aspirin 325 mg 05/31/19 06:00 Aspirin PO 05/31/19 06:01 ONCE ONE Aspirin 162 mg 06/01/19 09:00 Aspirin PO DAILY [facility] Atorvastatin Calcium 40 mg 05/30/19 21:00 Lipitor PO HS [facility] Atorvastatin Calcium 80 mg 05/31/19 06:00 Lipitor PO 05/31/19 06:01 ONCE ONE Glipizide 5 mg 05/29/19 18:15 05/30/19 08:41 Glucotrol PO 5 mg AC-BRKFST N[facility]I Administration Sodium Chloride 1,000 mls @ 75 mls/hr 05/29/19 12:30 05/30/19 14:02 Saline 0.9% IV 75 mls/hr .[id number] [facility] Administration Insulin Aspart 0 unit 05/29/19 21:00 05/30/19 13:24 Novolog SQ Not Given ACHS [facility] Protocol Lisinopril 5 mg 05/29/19 18:15 05/30/19 08:41 Zestril PO 5 mg DAILY [facility] Administration Lorazepam 2 mg 05/29/19 12:29 Ativan IV 06/04/19 12:30 ONCE PRN Seizures Metformin HCl 1,000 mg 05/29/19 21:00 05/30/19 08:41 Glucophage PO 1,000 mg BID-W/MEALS N[facility]ELI Administration Metoprolol Tartrate 50 mg 05/29/19 21:00 05/30/19 08:40 Lopressor PO 50 mg BID [facility] Administration Naloxone HCl 0.2 mg 05/29/19 12:27 Narcan IV Q2M PRN Opioid Reversal Nitroglycerin 0.4 mg 05/30/19 17:27 Nitrostat SUBLINGUAL Q5M PRN Chest Pain Intake and Output 05/30/19 05/30/19 05/30/19 06:59 14:59 22:59 Intake Total 600 Balance 600 Intake: Intake, IV Titration 600 Amount Sodium Chloride 0.9% 1, 600 000 ml @ 75 mls/hr IV . [id number] [facility] Rx#:[id number] Other: # Voids 3 05/29/19 09:33 05/29/19 09:33 <Jc Zavala - Last Filed: 06/01/19 14:19> History of Present Illness History of present illness: Patient interviewed and examined by me Presented with an episode of loss of consciousness while sitting. He became suddenly unconscious without any warning and his found him gurgling and making grunting sounds. After about a few minutes when he woke up he regained consciousness fairly quickly. His body stiffened up at but there was no convulsive activity His syncope is consistent with malignant syncope due to of ventricular tachyarrhythmia likely ventricular fibrillation or fast ventricular tachycardia with spontaneous termination I would proceed with coronary angiography Thereafter. I will consider an EP study all placement of a LifeVest depending upon the results of coronary angiography Physical Exam Vitals: Vital Signs Temp Pulse Pulse Resp BP Pulse Ox 06/01/19 11:15 98.1 F 65 18 147/77 97 06/01/19 07:53 97.7 F 73 18 128/71 96 06/01/19 03:26 98 F 75 16 114/69 96 05/31/19 22:56 98.5 F 79 18 133/69 96 05/31/19 21:56 69 137/68 05/31/19 20:56 88 149/71 05/31/19 20:26 83 148/79 05/31/19 19:56 83 162/78 05/31/19 19:41 81 154/78 05/31/19 19:26 81 158/76 05/31/19 19:11 78 18 142/66 78 L 05/31/19 16:00 98.0 F 70 18 181/92 97 Intake and Output 05/31/19 06/01/19 06/01/19 22:59 06:59 14:59 Intake Total 598.5 360 Output Total 200 600 Balance 598.5 -200 -240 Intake: IV 336 Intake, IV Titration 262.5 Amount Sodium Chloride 0.9% 1, 262.5 000 ml @ 75 mls/hr IV . [id number] [facility] Rx#:[id number] Oral 360 Output: Urine 200 600 Other: Voiding Method Toilet Toilet # Voids 2 1 2 Weight 93.8 kg Results 06/01/19 06:49 06/01/19 06:49 CBC 06/01/19 Range/Units 06:49 WBC 6.6 (3.8-10.6) k/uL RBC 4.07 L (4.30-5.90) m/uL Hgb 12.3 L (13.0-17.5) gm/dL Hct 38.1 L (39.0-53.0) % Plt Count 173 (150-450) k/uL Comprehensive Metabolic Panel 06/01/19 Range/Units 06:49 Sodium 140 (137-145) mmol/L Potassium 4.4 (3.5-5.1) mmol/L Chloride 110 H (98-107) mmol/L Carbon Dioxide 21 L (22-30) mmol/L BUN 15 (9-20) mg/dL Creatinine 0.99 (0.66-1.25) mg/dL Glucose 172 H (74-99) mg/dL Calcium 9.2 (8.4-10.2) mg/dL Current Medications Generic Name Dose Route Start Last Admin Trade Name Freq PRN Reason Stop Dose Admin Acetaminophen 650 mg 05/30/19 16:22 05/31/19 20:14 Tylenol Tab PO 650 mg Q6HR PRN Administration Fever and/ or MILD Pain Al Hydroxide/Mg Hydroxide 30 ml 05/31/19 19:11 Maalox PO Q4HR PRN Heartburn Aspirin 81 mg 06/01/19 09:00 06/01/19 08:16 Aspirin PO 81 mg DAILY [facility] Administration Atorvastatin Calcium 40 mg 05/30/19 21:00 05/31/19 20:14 Lipitor PO 40 mg HS [facility] Administration Atropine Sulfate 0.5 mg 05/31/19 19:11 Atropine IV ONCE PRN Symptomatic Bradycardia Clopidogrel Bisulfate 75 mg 06/01/19 16:00 Plavix PO DAILY [facility] Glipizide 5 mg 05/29/19 18:15 06/01/19 06:55 Glucotrol PO 5 mg AC-BRKFST [facility] Administration Sodium Chloride 1,000 mls @ 75 mls/hr 05/29/19 12:30 05/31/19 12:07 Saline 0.9% IV Not Given .[id number] [facility] Insulin Aspart 0 unit 05/29/19 21:00 06/01/19 11:38 Novolog SQ Not Given ACHS [facility] Protocol Lisinopril 5 mg 05/29/19 18:15 06/01/19 08:16 Zestril PO 5 mg DAILY [facility] Administration Lorazepam 2 mg 05/29/19 12:29 Ativan IV 06/04/19 12:30 ONCE PRN Seizures Metoprolol Tartrate 50 mg 05/29/19 21:00 06/01/19 08:16 Lopressor PO 50 mg BID [facility] Administration Miscellaneous Information 1 each 05/31/19 19:11 Rx Info: Iv Contrast Was Given MISCELLANE 06/02/19 19:11 DAILY PRN Per Protocol Naloxone HCl 0.2 mg 05/29/19 12:27 Narcan IV Q2M PRN Opioid Reversal Nitroglycerin 0.4 mg 05/31/19 19:11 Nitrostat SUBLINGUAL Q5M PRN Chest Pain Trazodone HCl 100 mg 05/30/19 19:20 05/30/19 22:01 Desyrel PO 100 mg HS PRN Administration Insomnia Zolpidem Tartrate 5 mg 05/31/19 19:11 Ambien PO HS PRN Insomnia Intake and Output 05/31/19 06/01/19 06/01/19 22:59 06:59 14:59 Intake Total 598.5 360 Output Total 200 600 Balance 598.5 -200 -240 Intake: IV 336 Intake, IV Titration 262.5 Amount Sodium Chloride 0.9% 1, 262.5 000 ml @ 75 mls/hr IV . [id number] [facility] Rx#:[id number] Oral 360 Output: Urine 200 600 Other: Voiding Method Toilet Toilet # Voids 2 1 2 Weight 93.8 kg 06/01/19 06:49 06/01/19 06:49
[2019-05-30] MEDS ORDERED: traZODone HCL 100 MG TAB PO PRN (19:20)
[2019-05-30 20:40] LABS: Glucose,Whole Blood 94 mg/dL (75-99)
[2019-05-30] MEDS: ATORVASTATIN 40 MG TAB PO SCH (21:14)
[2019-05-31] MEDS: metFORMIN 500 MG TAB PO SCH ×2 (02:01→16:15)
[2019-05-31] MEDS: glipiZIDE 5 MG TAB PO SCH (02:01)
[2019-05-31] MEDS ORDERED: ATORVASTATIN 80 MG TAB PO ONE (06:00)
[2019-05-31] MEDS ORDERED: ASPIRIN 325 MG TAB PO ONE (06:00)
[2019-05-31 06:32] LABS: Glucose,Whole Blood 170 mg/dL (75-99)
[2019-05-31] MEDS: INSULIN ASPART (NovoLOG) 100 UNIT/ML VIAL SQ SCH ×4 (06:38→20:12)
[2019-05-31] MEDS: METOPROLOL TARTRATE 50 MG TAB PO SCH ×2 (08:18→20:14)
[2019-05-31] MEDS: LISINOPRIL 5 MG TAB PO SCH (08:19)
[2019-05-31 11:39] LABS: Glucose,Whole Blood 130 mg/dL (75-99)
[2019-05-31] MEDS: SODIUM CHLORIDE 0.9% 1,000 ML IV SCH (12:07)
--- NOTE | 2019-05-31 13:07 | PN ---
PROGRESS NOTE DATE OF SERVICE: 05/31/2019 CHIEF COMPLAINT: Tachycardia and history of heart disease. HISTORY OF PRESENT ILLNESS: This gentleman is going down today for his cardiac cath. He feels fine. He has had no chest pain, syncope, palpitations, etc. PHYSICAL EXAM: Chest is clear and cardiac exam is same. Abdomen is soft, nontender. Extremities normal. IMPRESSION: 1. Ventricular tachycardia. 2. History of coronary artery disease. PLAN: Cardiac cath today and then make a determination as to what treatment will be recommended next. MMODL / IJN: [id number] /
[2019-05-31 16:54] LABS: Glucose,Whole Blood 98 mg/dL (75-99)
[2019-05-31] MEDS ORDERED: LIDOCAINE 1% INJ 10MG/ML (20 ML MDV) ONE (17:25)
[2019-05-31] MEDS ORDERED: LIDOCAINE 1% INJ 10MG/ML (20 ML MDV) SQ ONE (17:31)
[2019-05-31] MEDS ORDERED: MIDAZOLAM (PF) 2 MG/2 ML VIAL IV ONE (17:31)
[2019-05-31] MEDS ORDERED: IV FLUID CONTINUATION 500 ML IV ONE (17:31)
[2019-05-31] MEDS ORDERED: BIVALIRUDIN BOLUS 250 MG/50 ML IV ONE (17:50)
[2019-05-31] MEDS ORDERED: BIVALIRUDIN 250 MG in SODIUM CHLORIDE 0.9% 36 ML IV ONE (17:51)
[2019-05-31] MEDS ORDERED: CLOPIDOGREL 75 MG TAB ONE (17:53)
[2019-05-31] MEDS ORDERED: CLOPIDOGREL 75 MG TAB PO ONE (17:56)
[2019-05-31] MEDS ORDERED: hydrALAZINE HCL 20 MG/ML 1 ML VIAL ONE (18:10)
[2019-05-31] MEDS ORDERED: hydrALAZINE HCL 20 MG/ML 1 ML VIAL IV ONE (18:13)
[2019-05-31] MEDS ORDERED: IOPAMIDOL-370 125ML BTL INJ ONE (18:19)
[2019-05-31] MEDS ORDERED: ENALAPRILAT 1.25 MG/ML 1 ML VIAL ONE (18:30)
[2019-05-31] MEDS ORDERED: ENALAPRILAT 1.25 MG/ML 1 ML VIAL IV ONE (18:33)
[2019-05-31] MEDS ORDERED: BIVALIRUDIN 250 MG in SODIUM CHLORIDE 0.9% 50 ML IV ONE (18:34)
[2019-05-31] MEDS ORDERED: NITROGLYCERIN 1000MCG/10ML SYRINGE INTRACORON ONE (18:57)
[2019-05-31] MEDS ORDERED: ONDANSETRON 4 MG/2 ML VIAL ONE (18:59)
[2019-05-31] MEDS ORDERED: METOPROLOL TARTRATE 5 MG/5 ML VIAL IVP ONE ×2 (19:01→19:03)
[2019-05-31] MEDS ORDERED: ONDANSETRON 4 MG/2 ML VIAL IVP ONE (19:03)
[2019-05-31] MEDS ORDERED: IOPAMIDOL-370 100ML BTL INJ ONE (19:03)
[2019-05-31] MEDS ORDERED: RX INFO: IV CONTRAST WAS GIVEN 1 EACH MISC MISCELLANE PRN (19:11)
[2019-05-31] MEDS ORDERED: ATROPINE SULFATE 0.1 MG/ML 10ML SYRINGE IV PRN (19:11)
[2019-05-31] MEDS ORDERED: ZOLPIDEM 5 MG TAB PO PRN (19:11)
[2019-05-31] MEDS ORDERED: MAG HYDROX/AL HYDROX/SIMETH 30 ML CUP PO PRN (19:11)
[2019-05-31] MEDS ORDERED: NITROGLYCERIN SL TABS 0.4 MG TAB SUBLINGUAL PRN (19:11)
[2019-05-31] MEDS ORDERED: SODIUM CHLORIDE 0.9% 1,000 ML IV SCH (19:15)
[2019-05-31 20:10] LABS: Glucose,Whole Blood 143 mg/dL (75-99)
[2019-05-31] MEDS: ATORVASTATIN 40 MG TAB PO SCH (20:14)
[2019-05-31] MEDS: ACETAMINOPHEN TAB 325 MG TAB PO PRN (20:14)
--- NOTE | 2019-05-31 20:30 | CC ---
CARDIAC CATHETERIZATION REPORT DATE OF SERVICE: 05/31/2019 PERFORMING PHYSICIAN: Rory Rand MD, Transcriptionist. PROCEDURES PERFORMED: 1. Selective left and right coronary angiogram. 2. Left internal mammary artery to left anterior descending coronary artery angiogram. 3. Saphenous vein graft to diagonal angiogram. 4. Saphenous vein graft to obtuse marginal branch angiogram. 5. Left heart catheterization. 6. Successful stenting of the mid right coronary artery using a 2.0 x 22 mm [place] drug- eluting stent which was post-dilated using 3 mm NC balloon with excellent angiographic results. 7. Successful stenting of the proximal right coronary artery using a 2.75 x 23 mm Xience drug-eluting stent with excellent angiographic results. 8. Successful stenting of the ostial right coronary artery using a 3.0 x 15 mm Xience drug-eluting stent with excellent angiographic results. INDICATION: This is a 68-year-old gentleman with history of coronary artery disease and prior coronary artery bypass grafting where he received VILLAREAL to LAD, SVG to diagonal and SVG to left circumflex. He was admitted to the hospital with a syncopal episode and was experiencing intermittent episodes of nonsustained ventricular tachycardia concerning for severe underlying coronary artery disease. He was seen by Dr. Teran, who recommended proceeding with coronary angiogram. APPROACH: Right common femoral artery. COMPLICATIONS: None. LEVEL OF SEDATION: Moderate, with sedation length of 91 minutes. PROCEDURE DESCRIPTION: After obtaining informed consent, the patient was brought to the cardiac fish farm laborer. The right common femoral artery was cannulated using micropuncture technique. The micropuncture wire passed easily. Then I placed a 6-German sheath in the right common femoral artery. At that point I did selective right and left coronary angiogram. Selective left coronary angiogram was performed using JL4 catheter. Selective right coronary angiogram was performed using JR4 catheter. I did after that VILLAREAL to LAD angiogram, SVG to diagonal angiogram, and SVG to left circumflex angiogram using the JR4 catheter. Left heart catheterization was performed using a 6-German pigtail catheter. I did after that intervene on the right coronary artery. Please see a separate paragraph for that. SELECTIVE CORONARY ANGIOGRAM: 1. The left main is severely diseased up to about 80%. 2. The left circumflex is occluded in the proximal portion. 3. The LAD is occluded in the proximal to mid portion. 4. The right coronary artery has a critical lesion in the ostial as well as proximal as well as mid portion. The RCA distally has intermediate lesion only. ANGIOGRAM OF CORONARY BYPASSES: 1. The VILLAREAL to LAD is patent. 2. The SVG to diagonal is patent. 3. The SVG to OM is patent as well. HEMODYNAMICS: The left ventricular end-diastolic pressure was about 18 mmHg without significant gradient across the aortic valve. PERCUTANEOUS INTERVENTION OF THE RIGHT CORONARY ARTERY: Anticoagulation was initiated using Angiomax. Subsequently I did engage the RCA using JR4 with a side hole. I wired using a Whisper wire. I attempted advancing a 2.0 x 12 mm balloon, but the balloon would not cross the lesion in the right coronary artery. I did at that point wire the RCA using a martha wire which was a run-through wire. With that I was able to advance a 2.0 x 12 mm balloon where I did balloon angioplasty of the RCA in the mid, proximal and ostial portions. After that I did balloon angioplasty using a 2.5 x 12 mm NC balloon. I did the balloon also in the mid, proximal and ostial RCA. At that point I attempted advancing a 2.75 x 23 mm Xience MAURICIO, but the stent would not cross the lesion in the proximal to mid right coronary artery. I attempted using a GuideLiner, and in spite of adjunctive use of GuideLiner I was unable to get the stent. I attempted using GuideLiner with Ab stent, and with that I was able to get the stent. At that point I decided to use a martha wire with . I exchanged my Whisper wire for using a 1.5 x 8 mm [id number] balloon. After that I left the in. Then I wired the RCA again using a run-through wire. Over the run-through I was able to do balloon angioplasty again using a 3 mm NC balloon of the mid, proximal and ostial RCA. After that I was able to advance the [place] 2.0 x 22 mm to the mid RCA, where the stent was positioned under fluoroscopic guidance and deployed under 14 atmospheres for 20 seconds. For the proximal RCA, I deployed a 2.75 x 23 mm Xience MAURICIO. For the ostial RCA, I deployed a 3.0 x 15 mm Xience as well. I did post- dilatation of the 3 stents using 3 mm NC balloon. The final angiogram showed good results and the procedure was completed without any complication. CONCLUSION: 1. Severe triple-vessel coronary artery disease. 2. Patent VILLAREAL to LAD. 3. Patent SVG to diagonal. 4. Patent SVG to left circumflex. 5. Critical disease involving critical lesion, very complex, eccentric and calcified involving a long segment of the RCA; extends from the ostial all the way to the mid. 6. Successful stenting of the mid, proximal and ostial RCA as described above. POST-PROCEDURE MANAGEMENT: 1. Dual anti-platelet therapy. 2. Risk factor modifications. 3. Follow up with the patient. MMODL / IJN: [id number] /
[2019-06-01 06:13] LABS: Glucose,Whole Blood 224 mg/dL (75-99)
[2019-06-01] MEDS: INSULIN ASPART (NovoLOG) 100 UNIT/ML VIAL SQ SCH ×4 (06:55→20:40)
[2019-06-01] MEDS: glipiZIDE 5 MG TAB PO SCH (06:55)
[2019-06-01 07:50] LABS: African American GFR (CKD) >90 (>60 ml/min/1.73 sqM)
[2019-06-01] MEDS: LISINOPRIL 5 MG TAB PO SCH (08:16)
[2019-06-01] MEDS: METOPROLOL TARTRATE 50 MG TAB PO SCH ×3 (08:16→19:53)
[2019-06-01] MEDS: ASPIRIN 81 MG PO SCH (08:16)
[2019-06-01] MEDS ORDERED: ASPIRIN 81 MG PO SCH (09:00)
--- NOTE | 2019-06-01 10:03 | P.PN ---
Subjective Progress Note Date: 06/01/19 This is a pleasant 68-year old male past medical history significant for coronary artery disease s/p bypass grafting 2005 secondary to 90% distal left main disease, hypertension, diabetes mellitus and dyslipidemia. He follows regularly with a director of parks and recreation in [place]. He is admitted to the hospital following a syncopal episode. His episode of unresponsiveness lasted for approximately 1 minute. By the time EMS arrived he was back to his baseline neurologic function. MRI of the brain and CAT scan indicated chronic small vessel ischemic changes and cerebral atrophy. Telemetry tracings indicated at 11 beat run of monomorphic ventricular tachycardia. Patient was initially seen in consultation by Dr. Ambar Teran and subsequently a consultation was requested with Dr. Zavala. Dr. Zavala's impression, syncope worrisome for ventricular tachyarrhythmias, nonsustained monomorphic VT, irregular. Patient was taken to the cardiac catheterization lab yesterday by Dr. Lamar, he underwent angioplasty with 3 stent placements in the right coronary artery. He was seen and examined this morning, feels well, denies any chest pain or difficulty in breathing. No further arrhythmias noted on the monitor. Blood pressure 128/70 with a heart rate in the 70s, 96% on room air. Lab data pending. Objective - Vital Signs Vital signs: Vital Signs Temp 97.7 F 06/01/19 07:53 Pulse 73 06/01/19 07:53 Resp 18 06/01/19 07:53 BP 128/71 06/01/19 07:53 Pulse Ox 96 06/01/19 07:53 Intake & Output 05/31/19 06/01/19 06/01/19 18:59 06:59 18:59 Intake Total 336 262.5 240 Output Total 200 600 Balance 336 62.5 -360 Weight 93.8 kg Intake: IV 336 Intake, IV Titration 262.5 Amount Sodium Chloride 0.9% 1, 262.5 000 ml @ 75 mls/hr IV . [id number] NAYELI Rx#:[id number] Oral 240 Output: Urine 200 600 Other: Voiding Method Toilet Toilet # Voids 2 1 2 - Exam GENERAL: This is a 68-year-old male in no apparent distress at the time of my examination. HEENT: Head is atraumatic, normocephalic. Pupils are equal, round. Sclerae anicteric. Conjunctivae are clear. Mucous membranes of the mouth are moist. Neck is supple. There is no jugular venous distention. No carotid bruit is heard. LUNGS: Clear to auscultation no wheezes, rales or rhonchi. No chest wall tenderness is noted on palpation or with deep breathing. HEART: Regular rate and rhythm without murmurs, rubs or gallops. S1 and S2 h eard. ABDOMEN: Soft, nontender. Bowel sounds are heard. No organomegaly noted. EXTREMITIES: No evidence of peripheral edema and no calf tenderness noted. Right groin soft, no evidence of any hematoma. VASCULAR: Radial and dorsalis pedis pulses palpated, no evidence of clubbing. NEUROLOGIC: Patient is awake, alert and oriented x3. - Labs CBC & Chem 7: 05/29/19 09:33 06/01/19 06:49 Labs: Abnormal Lab Results - Last 24 Hours (Table) 05/31/19 05/31/19 06/01/19 Range/Units 11:38 20:08 06:12 POC Glucose (mg/dL) 130 H 143 H 224 H (75-99) mg/dL Assessment and Plan Plan: Assessment and plan #1 syncope, worrisome for ventricular tachyarrhythmia. #2 nonsustained monomorphic ventricular tachycardia, irregular #3 status post angioplasty with 3 stent placements into the RCA #4 hypertension #5 diabetes #6 hyperlipidemia Plan Echocardiogram with Doppler study revealed a preserved left ventricular systolic function, we will continue the patient on his dual antiplatelet therapy as well as his current medications. Plan is to proceed with EP study, Dr. Zavala will be up to reevaluate and discuss further with the patient today. DNP note has been reviewed, I agree with a documented findings and plan of care. Patient was seen and examined.
[2019-06-01 10:56] LABS: HCT 38.1 % (39.0-53.0); HGB 12.3 gm/dL (13.0-17.5); MCH 30.3 pg (25.0-35.0); MCHC 32.3 g/dL (31.0-37.0); MCV 93.7 fL (80.0-100.0); Mean Platelet Volume 8.4; Platelet Count 173 k/uL (150-450); RBC 4.07 m/uL (4.30-5.90); RDW 13.4 % (11.5-15.5); WBC 6.6 k/uL (3.8-10.6)
--- NOTE | 2019-06-01 11:15 | ECHOF ---
Referral Reason:syncopy MEASUREMENTS -------- HEIGHT: 170.2 cm WEIGHT: 99.8 kg BP: 128/73 RVIDd: 2.9 cm (< 3.3) IVSd: 1.2 cm (0.6 - 1.1) LVIDd: 4.0 cm (3.9 - 5.3) LVPWd: 1.7 cm (0.6 - 1.1) IVSs: 1.7 cm LVIDs: 2.6 cm LVPWs: 1.8 cm LAESV Index (A-L): 26.85 ml/m Ao Diam: 2.9 cm (2.0 - 3.7) AV Cusp: 1.9 cm (1.5 - 2.6) LA Diam: 4.2 cm (2.7 - 3.8) MV EXCURSION: 14.577 mm (> 18.000) MV EF SLOPE: 77 mm/s (70 - 150) EPSS: 0.6 cm MV E Dale: 1.00 m/s MV DecT: 212 ms MV A Dale: 0.75 m/s MV E/A Ratio: 1.34 AR PHT: 423 ms RAP: 5.00 mmHg RVSP: 27.70 mmHg FINDINGS -------- Sinus rhythm. This was a technically difficult study with suboptimal apical views. The left ventricular size is normal. There is moderate concentric left ventricular hypertrophy. O verall left ventricular systolic function is normal with, an EF between 55 - 60 %. There is paradox ical/dysynergic septal motion consistent with post-operative status. The diastolic filling pattern is normal for the age of the patient 11.41. The right ventricle is normal in size. Normal LA size by volume 22+/-6 ml/m2. The right atrial size is normal. 5.0mg of Lumason was utilized for enhancement of images Interatrial and interventricular septum intact. There is mild aortic valve sclerosis. Trace amount of aortic regurgitation. There is no evidence of aortic stenosis. Mild mitral annular calcification present. Mild mitral regurgitation is present. Mild tricuspid regurgitation present. There is no evidence of pulmonary hypertension. The right v entricular systolic pressure, as measured by Doppler, is 27.70mmHg. Trace/mild (physiologic) pulmonic regurgitation. The aortic root size is normal. IVC Not well visulized. There is no pericardial effusion. CONCLUSIONS -------- 1. Sinus rhythm. 2. This was a technically difficult study with suboptimal apical views. 3. The left ventricular size is normal. 4. There is moderate concentric left ventricular hypertrophy. 5. Overall left ventricular systolic function is normal with, an EF between 55 - 60 %. 6. There is paradoxical/dysynergic septal motion consistent with post-operative status. 7. The diastolic filling pattern is normal for the age of the patient 11.41 8. The right ventricle is normal in size. 9. Normal LA size by volume 22+/-6 ml/m2. 10. The right atrial size is normal. 11. 5.0mg of Lumason was utilized for enhancement of images 12. Interatrial and interventricular septum intact. 13. There is mild aortic valve sclerosis. 14. Trace amount of aortic regurgitation. 15. There is no evidence of aortic stenosis. 16. Mild mitral annular calcification present. 17. Mild mitral regurgitation is present. 18. Mild tricuspid regurgitation present. 19. There is no evidence of pulmonary hypertension. 20. The right ventricular systolic pressure, as measured by Doppler, is 27.70mmHg. 21. Trace/mild (physiologic) pulmonic regurgitation. 22. The aortic root size is normal. 23. IVC Not well visulized. 24. There is no pericardial effusion. CAPTAIN OF GUARDS: Donna Alas RDCS
[2019-06-01 11:31] LABS: Anion Gap 9 mmol/L; Blood Urea Nitrogen 15 mg/dL (9-20); Calcium 9.2 mg/dL (8.4-10.2); Carbon Dioxide 21 mmol/L (22-30); Chloride 110 mmol/L (98-107); Glucose 172 mg/dL (74-99); Potassium 4.4 mmol/L (3.5-5.1); Sodium 140 mmol/L (137-145)
[2019-06-01 11:40] LABS: Glucose,Whole Blood 83 mg/dL (75-99)
--- NOTE | 2019-06-01 14:24 | P.PN ---
Progress Note - Text Update Patient underwent coronary angiography which revealed VILLAREAL to the LAD him a saphenous vein graft to the diagonal, saphenous vein graft to the obtuse marginal, all of which are patent Stenting of the mid RCA, stenting to the proximal RCA and stenting of the ostial RCA Suggest Maximize beta blockers. He had episodes of nonsustained ventricular tachycardia His episode may be related to ischemia but he had no preceding chest discomfort or shortness of breath nausea experiencing any angina prior to this I would recommend a LifeVest for 3 months Thereafter, would recommend an EP study, 3 months after PCI Further management based on the results of the EP study and LifeVest over the next 3 months
[2019-06-01] MEDS: SODIUM CHLORIDE 0.9% 1,000 ML IV SCH (14:26)
[2019-06-01 15:23] VITALS: BMI 32.3
--- NOTE | 2019-06-01 15:25 | P.PN ---
Progress Note - Text Progress Note Date: 06/01/19 This is an addendum to the cardiology progress note dictated earlier today. We did have a discussion with the patient, the decision was made by Dr. Zavala to place a LifeVest on the patient in view of the fact that patient did have a significant RCA stenosis. He will wear the LifeVest for an approximate 3 months duration, at which time an EP study will be performed then. At this time we will maximize the patient's of beta blockers, his presenting episode may be related to ischemia but he had no preceding chest discomfort or shortness of breath prior to this. LifeVest will continue for 3 months as mentioned, EP study at that time.
[2019-06-01] MEDS: CLOPIDOGREL 75 MG TAB PO SCH (15:40)
--- NOTE | 2019-06-01 15:59 | P.PN ---
Progress Note - Text Progress Note Date: 06/01/19 This is another addendum to the progress note dictated, LifeVest is required for syncope in the setting of suspected sustained ventricular tachycardia possible ventricular fibrillation.
[2019-06-01 16:43] LABS: Glucose,Whole Blood 98 mg/dL (75-99)
--- NOTE | 2019-06-01 19:16 | PN ---
PROGRESS NOTE DATE OF SERVICE: 06/01/2019. CHIEF COMPLAINT: Arrhythmia. HISTORY OF PRESENT ILLNESS: This gentleman had cardiac cath yesterday and apparently two stents were placed. He is now waiting to talk to the desktop technician regarding whether or not he should be considered for an ICD. He has had no chest pain, palpitations, etc. He is doing well. PHYSICAL EXAM: Color is good. Chest is clear. Cardiac exam is unremarkable. Abdomen is soft, nontender. IMPRESSION: 1. Coronary artery disease. 2. Ventricular tachycardia. PLAN: Await recommendations from Cardiology regarding ventricular tachycardia. MMODL / IJN: [id number] /
[2019-06-01] MEDS: ATORVASTATIN 40 MG TAB PO SCH (19:53)
[2019-06-01 20:28] LABS: Glucose,Whole Blood 153 mg/dL (75-99)
[2019-06-02 06:16] LABS: Glucose,Whole Blood 170 mg/dL (75-99)
[2019-06-02] MEDS: INSULIN ASPART (NovoLOG) 100 UNIT/ML VIAL SQ SCH ×2 (06:21→12:32)
[2019-06-02] MEDS: LISINOPRIL 5 MG TAB PO SCH (08:23)
[2019-06-02] MEDS: METOPROLOL TARTRATE 50 MG TAB PO SCH (08:23)
[2019-06-02] MEDS: ASPIRIN 81 MG PO SCH (08:24)
[2019-06-02] MEDS: CLOPIDOGREL 75 MG TAB PO SCH (08:24)
[2019-06-02] MEDS: glipiZIDE 5 MG TAB PO SCH (08:24)
[2019-06-02 09:19] VITALS: RESP 18
[2019-06-02 11:48] LABS: Glucose,Whole Blood 121 mg/dL (75-99)
--- NOTE | 2019-06-02 11:54 | PN ---
PROGRESS NOTE This is a 68-year-old gentleman who underwent cardiac catheterization, angioplasty had ventricular tachycardia, currently has a LifeVest and is ready to go home. PHYSICAL EXAMINATION: On exam, comfortable at rest. Vital signs are stable. There is no jugular venous distention. Chest exam reveals good air entry bilaterally. Heart exam reveals first and second heart sounds. No gallop. Examination of extremities did not reveal any edema. The patient is on aspirin, Plavix, Lipitor, Lopressor, Glucotrol, and insulin. ASSESSMENT: 1. Coronary artery disease, status post CABG, status post catheterization and angioplasty of sun'aq right coronary artery. 2. Ventricular tachycardia. PLAN: Patient has a LifeVest in place. He will be discharged home. Follow up with Dr. Zavala for possible EP evaluation. MMODL / IJN: [id number] /
[2019-06-02] MEDS: SODIUM CHLORIDE 0.9% 1,000 ML IV SCH (12:33)
[2019-06-02 13:49] VITALS: BP 164/81; PULSE 65; TEMP 98.3
--- NOTE | 2019-06-03 | DS ---
DISCHARGE SUMMARY CHIEF COMPLAINT: Syncopal episode. HISTORY OF PRESENT ILLNESS AND PHYSICAL EXAM: Details of this man's history and physical can be found in the initial workup. LABORATORY STUDIES: While he was in the hospital, he had laboratory studies, details of which can be found in the laboratory section of his chart. COURSE IN HOSPITAL: After admission, he was placed on bedrest, started on intravenous fluids and he was worked up for a seizure. His history did not sound like seizure activity, then he developed a run of ventricular tachycardia. He was then investigated by Cardiology and found to have significant coronary artery lesions and underwent stenting. After that, determination was made that he could be discharged with a life vest and monitored to see how he does before considering a permanent ICD implantation. He will go home on light activity about the house and to follow up with us as well as Cardiology. FINAL DIAGNOSES: 1. Syncopal episode. 2. Coronary artery disease. 3. Ventricular tachycardia. OPERATIONS: Cardiac cath. CONSULTATIONS: Neurology and cardiology. He is improved. MMODL / IJN: [id number] /
== END 2019-06-02 13:24 | disposition home or self-care (01) | DRG 247 ==
LOC: EC 09:22 → 3NMEDONC 12:40 → 3SCARD 05-30 16:46 → OBSVTOIN 05-31 09:28
PROVIDERS: ADMIT Family Medicine; ATTEND Family Medicine
PROC: B2111ZZ Fluoroscopy of Multiple Coronary Arteries using Low Osmolar Contrast (ICD-10-PCS; 2019-05-31)
PROC: B2131ZZ Fluoroscopy of Multiple Coronary Artery Bypass Grafts using Low Osmolar Contrast (ICD-10-PCS; 2019-05-31)
PROC: 027136Z Dilation of Coronary Artery, Two Arteries with Three Drug-eluting Intraluminal Devices, Percutaneous Approach (ICD-10-PCS; principal; 2019-05-31 17:00)
PROC: 4A023N7 Measurement of Cardiac Sampling and Pressure, Left Heart, Percutaneous Approach (ICD-10-PCS; 2019-05-31 17:00)
DX: I25.10 Atherosclerotic heart disease of native coronary artery without angina pectoris (principal); I47.2 Ventricular tachycardia; E87.2 Acidosis; E11.9 Type 2 diabetes mellitus without complications; E78.5 Hyperlipidemia, unspecified; I10 Essential (primary) hypertension; R55 Syncope and collapse; Z79.82 Long term (current) use of aspirin; Z79.84 Long term (current) use of oral hypoglycemic drugs; Z79.899 Other long term (current) drug therapy; Z87.891 Personal history of nicotine dependence; Z95.1 Presence of aortocoronary bypass graft; Z88.5 Allergy status to narcotic agent; Z91.048 Other nonmedicinal substance allergy status
CPT/HCPCS: 36415; 70450; 70551; 71046; 80048; 80053; 80061; 81001; 83605; 83735; 83880; 84443; 84484; 85025; 85027; 85379; 85610; 85730; 93005; 93306; 93459; 93880; 95816; 96360; 96361; 99285; C1874

== ENCOUNTER 2025-05-03 14:04 | Inpatient (IN) | payer MEDICARE ==
[2025-05-03 14:47] LABS: Basophils # (A) 0.04 10*3/uL (0.00-0.10); Basophils % (A) 0.6 %; Eosinophils # (A) 0.14 10*3/uL (0.04-0.35); Eosinophils % (A) 2.1 %; HCT 40.2 % (39.6-50.0); HGB 13.5 g/dL (13.0-17.0); Lymphocytes # (A) 1.09 10*3/uL (0.90-5.00); Lymphocytes % (A) 16.2 %; MCH 31.3 pg (27.0-32.0); MCHC 33.6 g/dL (32.0-37.0); MCV 93.3 fL (80.0-97.0); Monocytes # (A) 0.60 10*3/uL (0.20-1.00); Monocytes % (A) 8.9 %; Neutrophils # (A) 4.83 10*3/uL (1.80-7.70); Neutrophils % (A) 72.1 %; Platelet Count 205 10*3/uL (140-440); RBC 4.31 10*6/uL (4.40-5.60); RDW 13.2 % (11.5-14.5); WBC 6.71 10*3/uL (4.50-10.00)
[2025-05-03 14:53] LABS: ALT 26 U/L (4-49); AST 34 U/L (17-59); African American GFR (CKD) 76 (>60 ml/min/1.73 sqM); Albumin 4.6 g/dL (3.5-5.0); Alkaline Phosphatase 60 U/L (38-126); Anion Gap 13 mmol/L; Blood Urea Nitrogen 25 mg/dL (9-20); Calcium 10.3 mg/dL (8.4-10.2); Carbon Dioxide 20 mmol/L (22-30); Chloride 107 mmol/L (98-107); Creatine Kinase 134 U/L (55-170); Glucose 212 mg/dL (74-99); Non-African American GFR(CKD) 66 (>60 ml/min/1.73 sqM); Potassium 4.6 mmol/L (3.5-5.1); Sodium 140 mmol/L (137-145); Total Protein 6.9 g/dL (6.3-8.2)
--- NOTE | 2025-05-03 15:07 | CT ---
EXAMINATION TYPE: CT brain wo con CT DLP: 1143.6 mGycm, Automated exposure control for dose reduction was used. DATE OF EXAM: 05/03/2025 2:49 PM COMPARISON: CT brain 05/29/2019, MR brain 05/29/2019 CLINICAL INDICATION:Male, 74 years old with history of Neuro deficit, acute, stroke suspected, Neuro deficit, acute, stroke suspected TECHNIQUE: Brain: Multiple axial CT images of the brain were obtained without IV contrast. . Coronal and sagitta l reformats reviewed. FINDINGS: Brain: Extra-axial spaces: No abnormal extra-axial fluid collections. Ventricular system: Within normal limits Cerebral parenchyma: Cerebral atrophy. No acute intraparenchymal hemorrhage or mass effect. The perdomo -white junction is well differentiated. Scattered hypoattenuating areas are seen within the periventr icular and subcortical white matter. Cerebellum: Unremarkable. Mass effect: No evidence of midline shift. Intracranial vasculature: Atherosclerotic calcifications of the intracranial vessels. Soft tissues: Normal. Calvarium/osseous structures: No depressed skull fracture. Paranasal sinuses and mastoid air cells: Clear Visualized orbits: Orbital contents are intact. IMPRESSION: 1. No acute intracranial process. 2. Nonspecific mild to moderate white matter changes, likely secondary to chronic small vessel ischem ic disease. [facility], , 05/03/2025 3:05 PM
[2025-05-03 15:15] LABS: INR 0.9 (<1.2); Partial Thromboplastin Time 22.2 sec (22.0-30.0); Prothrombin Time 10.6 sec (10.0-12.5)
--- NOTE | 2025-05-03 15:31 | CT ---
EXAMINATION TYPE: CT angio head neck CT DLP: 546.7 mGycm, Automated exposure control for dose reduction was used. DATE OF EXAM: 05/03/2025 3:04 PM COMPARISON: CT brain 05/03/2025, 05/29/2019, MRI brain 05/29/2019, carotid ultrasound 05/30/2019. CLINICAL INDICATION:Male, 74 years old with history of Neuro deficit, acute, stroke suspected; PHH, N euro deficit, acute, stroke suspected TECHNIQUE: Axially acquired helical CT angiogram of the head and neck was obtained with contrast util izing 75 cc of Isovue-370 administered intravenously. Axial images are supplemented with 3D reconstru ctions which were post-processed at an independent workstation. NASCET criteria used. MIP imaging performed on a separate workstation and submitted for review. FINDINGS: CTA HEAD: No evidence of acute intracranial hemorrhage, mass effect, or midline shift. The ventricles, sulci, a nd cisterns are unremarkable. The visualized portions of the internal carotid arteries, middle cerebral arteries, anterior cerebral arteries, and posterior cerebral arteries are patent. The basilar and vertebral arteries are patent. Partial visualization of sternotomy wires. 2 level degenerative disc disease of the cervical spine mo st pronounced at C4-C5 and C5-C6. Heterogenous left thyroid lobe with macrocalcification. CTA NECK: Right Carotid System: The common carotid artery and external carotid artery are patent. Moderate calcified plaque at the ca rotid bifurcation. No significant stenosis at the origin of the internal carotid artery. The remainin g portions of the internal carotid artery demonstrate normal size without significant narrowing. Left Carotid System: The common carotid artery and external carotid artery are patent. Approximately 50% stenosis of the o rigin of the external carotid artery. Retropharyngeal course of the left common carotid artery. Moder ate calcified plaque at the carotid bifurcation. Approximately 30% stenosis involving the origin of t he left internal carotid artery. The remaining portions of the internal carotid artery demonstrate no rmal size without significant narrowing. Vertebral arteries are patent without evidence hemodynamically significant stenosis. There is a three-vessel aortic arch. The origins of the great vessels are patent. No evidence of hemo dynamically significant stenosis. IMPRESSION: 1. No evidence of dissection of the cervical internal carotid arteries or vertebral arteries. No sign ificant stenosis at the right carotid bifurcation. Approximately 30 % stenosis at the origin of the l eft internal carotid artery secondary to calcified plaque. Additionally there is approximately 50% st enosis at the origin of the left external carotid artery. 2. No evidence of high-grade stenosis or intracranial aneurysm. [facility], , 05/03/2025 3:29 PM
--- NOTE | 2025-05-03 16:14 | ED ---
Neuro HPI - General Chief Complaint: Neuro Symptoms/Deficit Stated Complaint: Stroke Symptoms/Confusion Time Seen by Provider: 05/03/25 14:15 Source: patient Mode of arrival: ambulatory Limitations: no limitations - History of Present Illness Is the patient presenting with stroke symptoms?: Yes Last Known Well Time: 16:00 Initial Comments: 74-year-old male presents emergency department with slurred speech and right arm weakness. at bedside help supplement the history. States that the symptoms started last night around dinnertime. States that at 5:00 he was normal however at 6 PM the patient started slurring his speech and she could not understand anything that he was saying. The patient was also having weakness in his right arm and was having difficulty gripping things. He has no history of stroke. He reports that his symptoms are mostly improved but still feels some weakness in his right arm. Patient has appreciable right facial droop. Patient takes Plavix for his history of coronary disease. Denies any headaches. Admits to visual disturbance 2 days ago. Describes that he had kaleidoscope vision in his left eye. This resolved. No weakness in his legs. No other alleviating, precipitating modifying factors - Related Data Home Medications: Home Medications Medication Instructions Recorded Confirmed Metoprolol Tartrate [Lopressor] 50 mg PO BID-W/MEALS 05/03/25 05/03/25 Nitroglycerin Sl Tabs [Nitrostat] 0.4 mg SL Q5M PRN 05/03/25 05/03/25 glipiZIDE XL [Glucotrol XL] 5 mg PO DAILY 05/03/25 05/03/25 lisinopriL [Zestril] 20 mg PO BID 05/03/25 05/03/25 metFORMIN HCL [Glucophage] 1,000 mg PO BID 05/03/25 05/03/25 Previous Rx's Medication Instructions Recorded Atorvastatin [Lipitor] 40 mg PO HS #100 tab 06/02/19 Aspirin 81 mg PO DAILY #0 05/09/25 Pantoprazole [Protonix] 40 mg PO DAILY #30 tab 05/09/25 Ticagrelor [Brilinta] 90 mg PO BID 30 Days #60 tab 05/09/25 Allergies/Adverse Reactions: Allergies Allergy/AdvReac Type Severity Reaction Status Date / Time adhesive tape AdvReac Rash/Hives Verified 05/29/19 09:39 codeine AdvReac Rash/Hives Verified 05/29/19 09:39 Review of Systems ROS Statement: Those systems with pertinent positive or pertinent negative responses have been documented in the HPI. ROS Other: All systems not noted in ROS Statement are negative. General Exam Limitations: no limitations General appearance: alert, in no apparent distress Head exam: Present: atraumatic, normocephalic, normal inspection Eye exam: Present: normal appearance, PERRL, EOMI, other (mild righ flattening of nasolabial fold). Absent: scleral icterus, conjunctival injection, periorbital swelling ENT exam: Present: normal exam, mucous membranes moist Neck exam: Present: normal inspection. Absent: tenderness, meningismus, lymphadenopathy Respiratory exam: Present: normal lung sounds bilaterally. Absent: respiratory distress, wheezes, rales, rhonchi, stridor Cardiovascular Exam: Present: regular rate, normal rhythm, normal heart sounds. Absent: systolic murmur, diastolic murmur, rubs, gallop, clicks GI/Abdominal exam: Present: soft, normal bowel sounds. Absent: distended, tenderness, guarding, rebound, rigid Extremities exam: Present: normal inspection, full ROM, normal capillary refill. Absent: tenderness, pedal edema, joint swelling, calf tenderness Back exam: Present: normal inspection Neurological exam: Present: alert, oriented X3, CN II-XII intact Psychiatric exam: Present: normal affect, normal mood Skin exam: Present: warm, dry, intact, normal color. Absent: rash Stroke MDM - Lab Data Result diagrams: 05/03/25 14:31 05/03/25 14:31 Lab Results 05/03/25 05/03/25 05/03/25 Range/Units 14:31 14:31 14:31 WBC 6.71 (4.50-10.00) 10*3/uL RBC 4.31 L (4.40-5.60) 10*6/uL Hgb 13.5 (13.0-17.0) g/dL Hct 40.2 (39.6-50.0) % MCV 93.3 (80.0-97.0) fL MCH 31.3 (27.0-32.0) pg MCHC 33.6 (32.0-37.0) g/dL Plt Count 205 (140-440) 10*3/uL MPV 11.0 (9.5-12.2) fL Immature Gran % (Auto) 0.1 % Neutrophils % 72.1 % Lymphocytes % 16.2 % Monocytes % 8.9 % Eosinophils % 2.1 % Basophils % 0.6 % Immature Gran # 0.01 (0.00-0.04) 10*3/uL Neutrophils # 4.83 (1.80-7.70) 10*3/uL Lymphocytes # 1.09 (0.90-5.00) 10*3/uL Monocytes # 0.60 (0.20-1.00) 10*3/uL Eosinophils # 0.14 (0.04-0.35) 10*3/uL Basophils # 0.04 (0.00-0.10) 10*3/uL PT 10.6 (10.0-12.5) sec INR 0.9 (<1.2) APTT 22.2 (22.0-30.0) sec Sodium 140 (137-145) mmol/L Potassium 4.6 (3.5-5.1) mmol/L Chloride 107 (98-107) mmol/L Carbon Dioxide 20 L (22-30) mmol/L Anion Gap 13 mmol/L BUN 25 H (9-20) mg/dL Creatinine 1.11 (0.66-1.25) mg/dL Est GFR (CKD-EPI)AfAm 76 (>60 ml/min/1.73 sqM) Est GFR (CKD-EPI)NonAf 66 (>60 ml/min/1.73 sqM) Glucose 212 H (74-99) mg/dL Estimated Ave Glu mg/dL mg/dL Hemoglobin A1c (<=6.0) % Calcium 10.3 H (8.4-10.2) mg/dL Total Bilirubin 0.6 (0.2-1.3) mg/dL AST 34 (17-59) U/L ALT 26 (4-49) U/L Alkaline Phosphatase 60 (38-126) U/L Creatine Kinase 134 (55-170) U/L Troponin I (0.000-0.034) ng/mL Total Protein 6.9 (6.3-8.2) g/dL Albumin 4.6 (3.5-5.0) g/dL Triglycerides (0.00-149.00) mg/dL Cholesterol (0.00-200.00) mg/dL LDL Cholesterol, Calc (0.0-131.0) mg/dL VLDL Cholesterol, Calc (5.00-40.00) mg/dL HDL Cholesterol (40.00-60.00) mg/dL Cholesterol/HDL Ratio Ratio 05/03/25 05/03/25 05/03/25 Range/Units 14:31 14:31 14:31 WBC (4.50-10.00) 10*3/uL RBC (4.40-5.60) 10*6/uL Hgb (13.0-17.0) g/dL Hct (39.6-50.0) % MCV (80.0-97.0) fL MCH (27.0-32.0) pg MCHC (32.0-37.0) g/dL Plt Count (140-440) 10*3/uL MPV (9.5-12.2) fL Immature Gran % (Auto) % Neutrophils % % Lymphocytes % % Monocytes % % Eosinophils % % Basophils % % Immature Gran # (0.00-0.04) 10*3/uL Neutrophils # (1.80-7.70) 10*3/uL Lymphocytes # (0.90-5.00) 10*3/uL Monocytes # (0.20-1.00) 10*3/uL Eosinophils # (0.04-0.35) 10*3/uL Basophils # (0.00-0.10) 10*3/uL PT (10.0-12.5) sec INR (<1.2) APTT (22.0-30.0) sec Sodium (137-145) mmol/L Potassium (3.5-5.1) mmol/L Chloride (98-107) mmol/L Carbon Dioxide (22-30) mmol/L Anion Gap mmol/L BUN (9-20) mg/dL Creatinine (0.66-1.25) mg/dL Est GFR (CKD-EPI)AfAm (>60 ml/min/1.73 sqM) Est GFR (CKD-EPI)NonAf (>60 ml/min/1.73 sqM) Glucose (74-99) mg/dL Estimated Ave Glu mg/dL 137 mg/dL Hemoglobin A1c 6.4 H (<=6.0) % Calcium (8.4-10.2) mg/dL Total Bilirubin (0.2-1.3) mg/dL AST (17-59) U/L ALT (4-49) U/L Alkaline Phosphatase (38-126) U/L Creatine Kinase (55-170) U/L Troponin I <0.012 (0.000-0.034) ng/mL Total Protein (6.3-8.2) g/dL Albumin (3.5-5.0) g/dL Triglycerides 162.00 H (0.00-149.00) mg/dL Cholesterol 149.00 (0.00-200.00) mg/dL LDL Cholesterol, Calc 69.6 (0.0-131.0) mg/dL VLDL Cholesterol, Calc 32.40 (5.00-40.00) mg/dL HDL Cholesterol 47.00 (40.00-60.00) mg/dL Cholesterol/HDL Ratio 3.17 Ratio - Medical Decision Making Was pt. sent in by a medical professional or institution (, PA, BANQUET WAITER/WAITRESS, urgent care, hospital, or detention...) When possible be specific @ -No Did you speak to anyone other than the patient for history (EMS, parent, family, police, friend...)? What history was obtained from this source @ -Spoke with for history Did you review nursing and triage notes (agree or disagree)? Why? @ -I reviewed and agree with nursing and triage notes Were old charts reviewed (outside hosp., previous admission, EMS record, old EKG, old radiological studies, urgent care reports/EKG's, detention records)? Report findings @ -No old charts were reviewed Differential Diagnosis (chest pain, altered mental status, abdominal pain women, abdominal pain men, vaginal bleeding, weakness, fever, dyspnea, syncope, headache, dizziness, GI bleed, back pain, seizure, CVA, palpatations, mental health, musculoskeletal)? @ -Not applicable EKG interpDifferential CVA Ischemic stroke, hemorrhagic stroke, brain tumor, atypical migraine, Wernicke's encephalopathy, seizure, multiple sclerosis, meningitis, encephalitis, hypoglycemia, Guillain-Hutchinson, electrolytes disturbance, myasthenia gravis.... This is not meant to be an all-inclusive lists min.). @ -Yes and demonstrates sinus rhythm with a rate of 69. WA interval 277. QRS 115. QTc of 413. No acute ST segment elevations or depressions X-rays interpreted by me (1pt min.). @ -yes which demonstrates no acute process CT interpreted by me (1pt min.). @ -yes which demonstrates no acute process U/S interpreted by me (1pt. min.). @ -None done What testing was considered but not performed or refused? (CT, X-rays, U/S, labs)? Why? @ -None What meds were considered but not given or refused? Why? @ -None Did you discuss the management of the patient with other professionals (pr ofessionals i.e. , PA, BANQUET WAITER/WAITRESS, lab, RT, psych nurse, social work professor, table top tile setter, teacher, control systems drafting officer, shelter case manager)? Give summary @ -Spoke with Dr. Ma for admission Was smoking cessation discussed for >3mins.? @ -No Was critical care preformed (if so, how long)? @ -Yes, 35 minutes for activation of code stroke Were there social determinants of health that impacted care today? How? (Homelessness, low income, unemployed, alcoholism, drug addiction, transportation, low edu. Level, literacy, decrease access to med. care, correction, rehab)? @ -No Was there de-escalation of care discussed even if they declined (Discuss DNR or withdrawal of care, Hospice)? DNR status @ -No What co-morbidities impacted this encounter? (DM, HTN, Smoking, COPD, CAD, Cancer, CVA, ARF, Chemo, Hep., AIDS, mental health diagnosis, sleep apnea, morbid obesity)? @ -None Was patient admitted / discharged? Hospital course, mention meds given and route, prescriptions, significant lab abnormalities, going to OR and other pertinent info. @ -Upon arrival patient seen and evaluated in hallway 11. Thorough history and physical exam was performed. NIH is 2. Mild dysarthria and flattening of the right nasolabial fold. IV access was established. Laboratory studies were conducted. Chest x-ray and CT of the head were performed. Results are discussed with Dr. Ma who will admit the patient Undiagnosed new problem with uncertain prognosis? @ -No Drug Therapy requiring intensive monitoring for toxicity (Heparin, Nitro, Insulin, Cardizem)? @ -No Were any procedures done? @ -No Diagnosis/symptom? @ -Acute dysarthria, acute right-sided weaknessresolved, possible CVA Acute, or Chronic, or Acute on Chronic? @ -Acute Uncomplicated (without systemic symptoms) or Complicated (systemic symptoms)? @ -Complicated Side effects of treatment? @ -No Exacerbation, Progression, or Severe Exacerbation? @ -No Poses a threat to life or bodily function? How? (Chest pain, [place], [place], pneumonia, PE, COPD, DKA, ARF, appy, cholecystitis, CVA, Diverticulitis, Homicidal, Suicidal, threat to staff... and all critical care pts) @ -No Past Medical History Past Medical History: Diabetes Mellitus, Hypertension History of Any Multi-Drug Resistant Organisms: None Reported Past Surgical History: Coronary Bypass/CABG Past Psychological History: No Psychological Hx Reported Smoking Status: Former smoker Past Alcohol Use History: Occasional Past Drug Use History: None Reported Course Vital Signs 05/03/25 05/03/25 05/03/25 14:13 14:45 15:37 Temperature 98.3 F Pulse Rate 70 70 69 Respiratory 18 16 19 Rate Blood Pressure 179/75 179/77 159/72 Blood Pressure [Left Arm] O2 Sat by Pulse 99 97 96 Oximetry 05/03/25 05/03/25 05/03/25 16:17 17:39 18:00 Temperature Pulse Rate 73 61 Respiratory 17 17 17 Rate Blood Pressure 145/76 143/77 Blood Pressure [Left Arm] O2 Sat by Pulse 98 98 Oximetry 05/03/25 05/03/25 05/03/25 18:22 20:11 21:49 Temperature Pulse Rate 61 58 L 64 Respiratory 18 18 18 Rate Blood Pressure 143/77 143/76 146/70 Blood Pressure [Left Arm] O2 Sat by Pulse 97 98 97 Oximetry 05/03/25 05/04/25 05/04/25 23:00 00:00 01:00 Temperature Pulse Rate 68 64 65 Respiratory 18 18 18 Rate Blood Pressure 150/80 134/62 139/59 Blood Pressure [Left Arm] O2 Sat by Pulse 98 97 98 Oximetry 05/04/25 05/04/25 05/04/25 02:00 06:44 10:00 Temperature Pulse Rate 63 79 86 Respiratory 18 18 18 Rate Blood Pressure 149/88 174/75 174/84 Blood Pressure [Left Arm] O2 Sat by Pulse 97 97 97 Oximetry 05/04/25 05/04/25 05/04/25 11:00 12:00 13:00 Temperature Pulse Rate 84 80 78 Respiratory 18 18 18 Rate Blood Pressure 152/84 154/85 160/91 Blood Pressure [Left Arm] O2 Sat by Pulse 97 97 97 Oximetry 05/04/25 05/04/25 05/04/25 16:36 17:45 17:50 Temperature 98.2 F 98.3 F Pulse Rate 75 Respiratory 19 18 Rate Blood Pressure 175/95 183/89 Blood Pressure 187/76 [Left Arm] O2 Sat by Pulse 98 96 Oximetry Disposition Clinical Impression: Cerebrovascular accident (CVA), Right sided weakness, Dysarthria Disposition: ADMITTED IP TO THIS [facility] Condition: Stable Is patient prescribed a controlled substance at d/c from ED?: No Time of Disposition: 16:53 Decision to Admit Reason: Admit from EC Decision Date: 05/03/25 Decision Time: 16:53
--- NOTE | 2025-05-03 16:51 | XR ---
EXAMINATION TYPE: XR chest 2V DATE OF EXAM: 05/03/2025 4:46 PM COMPARISON: Chest radiographs from 05/29/2019 TECHNIQUE: XR chest 2V Frontal and lateral views of the chest. CLINICAL INDICATION:Male, 74 years old with history of altered mental status; FINDINGS: Lungs/Pleura: There is no evidence of pleural effusion, focal consolidation, or pneumothorax. Pulmonary vascularity: Unremarkable. Heart/mediastinum: Cardiomediastinal silhouette is enlarged and stable. Postoperative changes are pr esent in the mediastinum. Musculoskeletal: No acute osseous pathology. Midline sternotomy wires are noted and stable. IMPRESSION: Chronic changes without acute pulmonary process. No significant change from prior. [facility], , 05/03/2025 4:49 PM
[2025-05-03] MEDS: ATORVASTATIN 40 MG TAB PO SCH (17:40)
[2025-05-03] MEDS: ASPIRIN 325 MG TAB PO STA (17:40)
[2025-05-03] MEDS: METOPROLOL TARTRATE 50 MG TAB PO SCH (17:40)
[2025-05-03] MEDS: metFORMIN 500 MG TAB PO SCH (20:10)
[2025-05-04] MEDS: glipiZIDE 5 MG TAB PO SCH (08:33)
[2025-05-04] MEDS: CLOPIDOGREL 75 MG TAB PO SCH (08:34)
[2025-05-04] MEDS ORDERED: DEXTROSE 50% SYRINGE 50 ML IVP PRN ×2 (09:03)
[2025-05-04] MEDS: INSULIN LISPRO (HumaLOG) 100 UNIT/ML 10 mL VL SQ SCH (10:12)
[2025-05-04] MEDS: PANTOPRAZOLE 40 MG/10 ML VIAL IVP SCH (10:19)
[2025-05-04 11:07] LABS: Glucose,Whole Blood 111 mg/dL (70-110)
--- NOTE | 2025-05-04 13:19 | P.HPIM ---
History of Present Illness H&P Date: 05/04/25 Chief Complaint: Garbled speech, right hand weakness This is a pleasant 74-year-old gentleman with past medical history significant for CAD, CABG with Dr. Richter, cardiac stents 2019- Dr. Rand, hypertension, diabetes mellitus, former nicotine dependence, obesity and multiple other medical issues presented to the ER with complaints of right upper extremity weakness, garbled speech. Reports earlier in the week around Wednesday developed visual disturbance in the left eye as if he was looking through a kaleidoscope which resolved within a few minutes. Attributed it to dirty glasses as it never reoccurred. Wednesday night after dinner, developed garbled speech. Reports he understood and was able to process what was being said to him just his speech was messed up. states she did not notice any facial drooping at that time as patient "normally smirks-making it difficult to notice". morning speech appeared normal, patient and proceeded to the gym, came back home to eat brunch. Sat down at his desk, took his blood pressure reporting a systolic blood pressure in the 180s, attempted to write a check for a bill and was unable to hold the pen in his right hand. Denies missing any medications, endorses medication compliance, but does not check his sugars at home. he reports his tongue felt heavy, garbled speech reoccurred and they proceeded to the ER. Shortly after arriving to the ER, his speech cleared up. disclosed that his 3rd and 4th digits of his right hand weaker, difficulty with performing fine motor skills. Reports prior right hand trauma years ago while carrying a heavy couch, overstretched his 3rd and 4th digit of the right hand with pain lasting for months. Often at night, 3rd and 4th digits of right hand become numb denies burning sensation. Patient states his right hand gets numb when walking outside. Reports right hand numbness during the night. Brain CT nonacute. Angiographic CT reported no evidence of dissection of the cervical internal carotid arteries or vertebral arteries no significant stenosis of the right carotid bifurcation. Approximately 30% stenosis at the origin of the left internal carotid artery secondary to calcified plaque. Additionally there is approximately 50% stenosis at the origin of the left external carotid artery. No evidence of high-grade stenosis or intracranial aneurysm. Review of Systems ROS Statement: Those systems with pertinent positive or pertinent negative responses have been documented in the HPI. ROS Other: All systems not noted in ROS Statement are negative. Past Medical History Past Medical History: Diabetes Mellitus, Hypertension History of Any Multi-Drug Resistant Organisms: None Reported Past Surgical History: Coronary Bypass/CABG Past Psychological History: No Psychological Hx Reported Smoking Status: Former smoker Past Alcohol Use History: Occasional Past Drug Use History: None Reported Medications and Allergies Home Medications Medication Instructions Recorded Confirmed Type Atorvastatin [Lipitor] 40 mg PO HS #100 tab 06/02/19 05/03/25 Rx Clopidogrel [Plavix] 75 mg PO DAILY #100 tab 06/02/19 05/03/25 Rx Aspirin 81 mg PO BID 05/03/25 05/03/25 History Metoprolol Tartrate [Lopressor] 50 mg PO BID-W/MEALS 05/03/25 05/03/25 History Nitroglycerin Sl Tabs [Nitrostat] 0.4 mg SL Q5M PRN 05/03/25 05/03/25 History glipiZIDE XL [Glucotrol Xl] 5 mg PO DAILY 05/03/25 05/03/25 History lisinopriL [Zestril] 20 mg PO BID 05/03/25 05/03/25 History metFORMIN HCL [Glucophage] 1,000 mg PO BID 05/03/25 05/03/25 History Allergies Allergy/AdvReac Type Severity Reaction Status Date / Time adhesive tape AdvReac Rash/Hives Verified 05/29/19 09:39 codeine AdvReac Rash/Hives Verified 05/29/19 09:39 Physical Exam Vitals: Vital Signs Temp Pulse Resp BP Pulse Ox 05/04/25 06:44 79 18 174/75 97 05/04/25 02:00 63 18 149/88 97 05/04/25 01:00 65 18 139/59 98 05/04/25 00:00 64 18 134/62 97 05/03/25 23:00 68 18 150/80 98 05/03/25 21:49 64 18 146/70 97 05/03/25 20:11 58 L 18 143/76 98 05/03/25 18:22 61 18 143/77 97 05/03/25 18:00 61 17 143/77 98 05/03/25 17:39 73 17 145/76 98 05/03/25 16:17 17 05/03/25 15:37 69 19 159/72 96 05/03/25 14:45 70 16 179/77 97 05/03/25 14:13 98.3 F 70 18 179/75 99 PHYSICAL EXAM: VITAL SIGNS: [Reviewed] GENERAL: Pleasant 74-year-old gentleman sitting up on side of stretcher, alert and oriented x 3, no acute distress. HEENT: Atraumatic, normocephalic ,conjunctivae normal. eyes normal. Tongue midline, conversing appropriately, no facial droop noted at this time. NECK: Supple, no JVD. No thyroid enlargement. No LNs CARDIOVASCULAR: S1, S2 regular. No murmur RESPIRATION: Unlabored, equal air entry, clear to auscultation with bilateral bases diminished. ABDOMEN: Soft, nondistended, nontender . No guarding. no masses palpable. No ascites, No hepatosplenomegaly.Bowel sounds heard. LEGS: No edema. no swelling NERVOUS SYSTEM: Cranial N 2-12 grossly normal. Moves all 4 limbs. Strength and sensation grossly intact with the exception of diffuse weakness of the right hand. Skin: Warm and dry, no rash. Results CBC & Chem 7: 05/03/25 14:31 05/03/25 14:31 Labs: Abnormal Lab Results - Last 24 Hours (Table) 05/03/25 05/03/25 05/04/25 Range/Units 14:31 14:31 11:05 RBC 4.31 L (4.40-5.60) 10*6/uL Carbon Dioxide 20 L (22-30) mmol/L BUN 25 H (9-20) mg/dL Glucose 212 H (74-99) mg/dL POC Glucose (mg/dL) 111 H (70-110) mg/dL Calcium 10.3 H (8.4-10.2) mg/dL Assessment and Plan Assessment: Dysarthria, right upper extremity weakness, rule out CVA, recurrent TIA Hypertension, uncontrolled CAD, history of CABG history of cardiac stents Diabetes mellitus, hyperglycemic on admission, reports his last A1c was less than 6, hemoglobin A1c pending. Plan: Continue on current medication regimen ,monitoring and symptomatic treatment. maintained on aspirin, statin. Home meds have been reviewed and resumed accordingly. Diet has been adjusted to consistent carb diet. Tight glycemic control with insulin sliding scale initiated, hemoglobin A1c ordered. Neurology and cardiology consults in place. PT/OT/ST consults in place. Echo, brain MRI ordered. Further recommendations to follow. The impression and plan of care has been dictated as directed. : I performed a history and examination of this patient, discussed the same with the dictator. I agree with the dictator's note ,documented as a scribe. Any additional findings or plans will be noted.
[2025-05-04] MEDS: ASPIRIN 325 MG TAB PO SCH (13:52)
--- NOTE | 2025-05-04 14:56 | MR ---
EXAMINATION TYPE: MR brain wo con DATE OF EXAM: 05/04/2025 2:44 PM COMPARISON: CT 05/03/2025. CLINICAL INDICATION: Male, 74 years old with history of Acute stroke; PHH, acute stroke. TECHNIQUE: Multi planar, multi sequence imaging was performed through the brain including: T1, T2, In version recovery, Diffusion weighted imaging, and gradient echo imaging. No gadolinium was given. FINDINGS: Restricted diffusion within the left frontal lobe deep white matter. Mild cerebral atrophy with proportional dilation of ventricular system. Scattered foci of high T2 s ignal intensity are seen within the periventricular white matter. Midline structures show no abnormal ity. The susceptibility weighted images do not reveal any evidence for micro-hemorrhage. The bone marrow signal is within normal limits. Paranasal sinuses and mastoid air cells: No significant paranasal sinus disease. Visualized orbits: Orbital contents are intact. IMPRESSION: 1. Acute/subacute CVA involving the left frontal lobe deep white matter. 2. Nonspecific white matter changes, likely secondary to small vessel ischemic disease. [facility], , 05/04/2025 2:54 PM
[2025-05-04 15:23] LABS: Glucose,Whole Blood 106 mg/dL (70-110)
--- NOTE | 2025-05-04 15:53 | P.CNNES ---
History of Present Illness Consult date: 05/04/25 Requesting physician: Chelsea Santana Reason for Consult: acute right sided weakness, suspected cva History of Present Illness: Patient is a 74-year-old right-handed male with history of hypertension, diabetes, hyperlipidemia, came to the hospital yesterday at 2:04 PM for strokelike symptoms. Patient's first symptoms occurred on Wednesday, 2 days prior to arrival, with transient episode of kaleidoscope feeling in the left eye. It lasted for a minute and then went away. On Wednesday, at around 6 PM after he had dinner, he had slurred speech. His could not understand what he was saying, it was not gibberish, only slurred speech. She had difficulty understanding. He blamed it on some dry mouth. Symptoms lasted for the rest of the evening. He went to sleep and yesterday morning he woke up and his speech was fine. He went to do exercises at 8:30 AM for 1 to 1-1/2 hours. He was feeling fine. However at around 12 noon, when he was trying to write, he could not hold the pen with his right hand, could not control his handwriting. They got concerned and patient's brought him to the hospital. Patient denies any neck pain. Denies any pain anywhere. No facial droop, or balance problem. Vital signs on arrival blood pressure 179/75, pulse rate 70 temperature 98.3. Repeat blood pressure 179/77. Blood test shows normal CBC, PT PTT, normal CMP calcium mildly elevated 10.3. Troponin negative. CK normal. CT head showed no acute intracranial process. Nonspecific mild to moderate white matter changes, likely secondary to chronic small vessel ischemic disease. Chest x-ray showed chronic changes without acute pulmonary process. No significant change from prior. EKG showed sinus rhythm with first-degree AV block. Patient has been seen by Dr. Oconnor on 05/29/2019 for possible seizure. It was felt to be convulsive syncope, less likely a seizure. MRI of the brain and EEG were normal. Patient had a V. tach. Cardiology was seen at that time. Patient has history of hypertension, hyperlipidemia, diabetes for last 10 years. No previous history of strokes or TIA. Patient was a light smoker for about 5 to 6 years, quit 40 years ago. He drinks 1 glass of wine every couple weeks. Denies any use of marijuana. Home medications include aspirin 81 mg, Plavix 75 mg, Lipitor 40 mg, lisinopril 20 mg twice daily, metformin 1000 mg twice daily, glipizide, metoprolol. He is compliant, has not missed the dose of his medications. Review of Systems All pertinent positive and negative review of systems mentioned in the HPI, otherwise unremarkable. Past Medical History Past Medical History: Diabetes Mellitus, Hypertension History of Any Multi-Drug Resistant Organisms: None Reported Past Surgical History: Coronary Bypass/CABG Past Psychological History: No Psychological Hx Reported Smoking Status: Former smoker Past Alcohol Use History: Occasional Past Drug Use History: None Reported Medications and Allergies Home Medications Medication Instructions Recorded Confirmed Type Atorvastatin [Lipitor] 40 mg PO HS #100 tab 06/02/19 05/03/25 Rx Clopidogrel [Plavix] 75 mg PO DAILY #100 tab 06/02/19 05/03/25 Rx Aspirin 81 mg PO BID 05/03/25 05/03/25 History Metoprolol Tartrate [Lopressor] 50 mg PO BID-W/MEALS 05/03/25 05/03/25 History Nitroglycerin Sl Tabs [Nitrostat] 0.4 mg SL Q5M PRN 05/03/25 05/03/25 History glipiZIDE XL [Glucotrol Xl] 5 mg PO DAILY 05/03/25 05/03/25 History lisinopriL [Zestril] 20 mg PO BID 05/03/25 05/03/25 History metFORMIN HCL [Glucophage] 1,000 mg PO BID 05/03/25 05/03/25 History Allergies Allergy/AdvReac Type Severity Reaction Status Date / Time adhesive tape AdvReac Rash/Hives Verified 05/29/19 09:39 codeine AdvReac Rash/Hives Verified 05/29/19 09:39 Physical Examination - Vital Signs Vital Signs: Vital Signs Temp Pulse Resp BP Pulse Ox 05/04/25 06:44 79 18 174/75 97 05/04/25 02:00 63 18 149/88 97 05/04/25 01:00 65 18 139/59 98 05/04/25 00:00 64 18 134/62 97 05/03/25 23:00 68 18 150/80 98 05/03/25 21:49 64 18 146/70 97 05/03/25 20:11 58 L 18 143/76 98 05/03/25 18:22 61 18 143/77 97 05/03/25 18:00 61 17 143/77 98 05/03/25 17:39 73 17 145/76 98 05/03/25 16:17 17 05/03/25 15:37 69 19 159/72 96 05/03/25 14:45 70 16 179/77 97 05/03/25 14:13 98.3 F 70 18 179/75 99 Patient is an elderly male, in no acute distress. Patient is alert awake oriented to time place and person. Speech and language functions are normal. Patient can name and repeat very well. No aphasia or dysarthria. Attention, concentration and fund of knowledge is adequate. On cranial nerve examination, pupils are equal, round and reacting to light, visual dwyer are full on confrontation, with no neglect on double simultaneous stimulation. Extraocular muscles are intact with no nystagmus. Face is symmetric, tongue protrudes to the midline. Palatal elevation and sensation normal, hearing and shoulder shrug normal, facial sensation normal. On muscle strength testing, there is no pronator drift and the strength is normal in arms and legs distally and proximally. Detailed testing of the right hand appears normal. He states that at present he notices that when he is trying to touch his right thumb to the right ring or the little finger (opposition movement), he misses it, but can touch the other 2 digits (index and middle finger) with his thumb without any problem. Deep tendon reflexes are symmetric trace to 1 in the arms and legs and plantars downgoing. Sensory to touch is equal with no neglect on double simultaneous stimulation. Cerebellar function showed no ataxia for [id number] testing. No dysdiadochokinesia. No ataxia for inws-bz-gine testing on either side. Tone and bulk of muscles normal. Gait: Patient walking very normally in the hallway. On general examination, there is no carotid bruit or murmur, S1-S2 audible. Chest is clear on consultation. Abdomen is soft nontender. No organomegaly, bowel sounds present. Peripheral pulses are present. No peripheral edema. Results - Laboratory Findings CBC and BMP: 05/03/25 14:31 05/03/25 14:31 Abnormal Lab Findings: Abnormal Labs 05/03/25 05/03/25 05/04/25 14:31 14:31 11:05 RBC 4.31 L Carbon Dioxide 20 L BUN 25 H Glucose 212 H POC Glucose (mg/dL) 111 H Calcium 10.3 H Assessment and Plan Assessment: * Possible recurrent TIAs, in different vascular territories. He had 1 episode of transient kaleidoscope sensation with the left eye, then he had some speech difficulty that lasted for a few hours. Now he has developed weakness of the right hand. Rule out cardioembolic source. * Hypertension * Hyperlipidemia * Diabetes * Coronary artery disease, history of bypass surgery Plan: MRI of the brain without contrast, evaluate for acute CVA 2-D echo with bubble study to rule out PFO Cardiology consultation for possible LINDA. Patient is having TIAs in different vascular territories. Rule out embolic source. CTA head and neck showed: No evidence of dissection of the cervical internal carotid arteries or vertebral arteries. No significant stenosis at the right carotid bifurcation. Approximately 30% stenosis at the origin of the left internal carotid artery secondary to calcified plaque. Additionally, there is approximately 50% stenosis at the origin of the left external carotid artery. No evidence of high-grade stenosis or intracranial aneurysm. Carotid Doppler, rule out stenosis Fasting a.m. lipid panel. Continue Lipitor 40 mg daily. Hemoglobin A1c 6.4, well-controlled Permissive hypertension for next 24-48 hours Patient has been on aspirin 81 mg daily and Plavix 75 mg daily. We will increase aspirin to 325 mg daily for now pending above workup. Continue Plavix. Neuro checks every 4 hours. Telemetry monitoring rule out any arrhythmia PT, OT, speech therapy DVT prophylaxis: Patient low risk. Patient ambulatory. Neurology will continue to follow. Thank you for the consult. Time with Patient: Greater than 30
[2025-05-04 15:58] LABS: Cholesterol 149.00 mg/dL (0.00-200.00); HDL Cholesterol 47.00 mg/dL (40.00-60.00); LDL Cholesterol,Calculated 69.6 mg/dL (0.0-131.0); Triglycerides 162.00 mg/dL (0.00-149.00); VLDL Calculation 32.40 mg/dL (5.00-40.00)
--- NOTE | 2025-05-04 16:46 | US ---
EXAMINATION TYPE: US carotid duplex BILAT DATE OF EXAM: 05/04/2025 COMPARISON: NONE CLINICAL INDICATION: Male, 74 years old with history of Recurrent TIA/stroke, rule out left ICA steno sis; CVA Additional History: .... TECHNIQUE: Grayscale, color Doppler and spectral Doppler evaluation of the bilateral carotid systems and vertebral arteries. Indirect Doppler criteria was utilized. FINDINGS: EXAM MEASUREMENTS: RIGHT: Peak Systolic Velocity (PSV) cm/sec ----- Right CCA: 129.0 ----- Right ICA: 115.0 ----- Right ECA: 116.0 ICA/CCA ratio: 0.9 RIGHT: End Diastole cm/sec ----- Right CCA: 18.2 ----- Right ICA: 21.1 ----- Right ECA: 0.0 LEFT: Peak Systolic Velocity (PSV) cm/sec ----- Left CCA: 127.0 ----- Left ICA: 116.0 ----- Left ECA: 167.0 ICA/CCA ratio: 0.9 LEFT: End Diastole cm/sec ----- Left CCA: 22.7 ----- Left ICA: 35.2 ----- Left ECA: 0.0 VERTEBRALS (direction of flow): Right Vertebral: Antegrade Left Vertebral: Antegrade Rhythm: Normal FURNACE LINER NOTES: Mild heterogeneous plaque with no stenosis seen Color Doppler imaging shows patency with blood flow throughout the carotid artery. Spectral waveforms are within normal limits. IMPRESSION: Right: No hemodynamically significant stenosis. Left: No hemodynamically significant stenosis. Criteria for Assigning % of Stenosis / Diameter reduction (Estimation based on the indirect measurements of the internal carotid artery velocities (ICA PSV). 1. Normal (no stenosis)=ICA PSV < 180 cm/s: ratio < 2.0: ICA EDV<40 cm/s. 2. Less than 50% stenosis=ICA PSV < 180 cm/s: ratio < 2.0: ICA EDV<40 cm/s. 3. 50 to 69% stenosis=ICA PSV of 180 to 230 cm/s: ration 2.0 ? 4.0: ICA EDV 40-100 cm/s. PSV 125-180 cm/sec and ICA/CCA PSV Ratio ? 2.0 is also consistent with 50-69% stenosis 4. Greater than 70% stenosis to near occlusion= ICA PSV > 230 cm/s: ratio > 4.0: ICA EDV > 100 cm/s. 5. Near occlusion= ICA PSV velocities may be low or undetectable: variable ratio and ICA EDV. 6. Total occlusion=unable to detect flow. [facility], , 05/04/2025 4:44 PM
[2025-05-04 21:13] LABS: Glucose,Whole Blood 86 mg/dL (70-110)
[2025-05-05 03:09] LABS: Glucose,Whole Blood 109 mg/dL (70-110)
[2025-05-05 08:05] LABS: Glucose,Whole Blood 123 mg/dL (70-110)
--- NOTE | 2025-05-05 10:29 | P.CRDCN ---
History of Present Illness Consult date: 05/05/25 Reason for Consult (text): stroke History of present illness: This is Jah Motta NP, I'm dictating on behalf of Dr. Zavala's H&P and A&P The patient was interviewed and examined. HPI: Patient is a 74-year-old male, patient of Dr. Rand with a past medical history that includes coronary artery disease, diabetes, hypertension, and coronary bypass grafting who presented to the emergency department for slurred speech and right arm weakness. Symptoms started on 625 around 6 PM that night. noticed slurring in the patient's speech and she could not understand anything he was saying. Patient was also exhibiting weakness in his right arm and having difficulty holding things. He has no past history of stroke. After arrival to the emergency department symptoms had mostly resolved but was still having some weakness in his right arm. He had appreciable right facial droop. He reports a visual disturbance approximately 2 days ago where he had kaleidoscope vision in his left eye. That has since resolved. Cardiology was consulted secondary to possible CVA for LINDA. Patient reports that his symptoms have nearly completely resolved. He is not experiencing any significant residual deficits. MRI does show CVA involving the left frontal lobe deep white matter. ROS: [No fever, chills, or rigors] [no cough, phlegm, or expectoration] [no nausea, vomiting, or diarrhea] [no hematuria, dysuria] [no musculoskelatal complaints] [no strokes or seizures] [no skin lesions] EXAMINATION: GENERAL: Well-appearing, well-nourished and in no acute distress. NECK: Supple without JVD or thyromegaly. LUNGS: Breath sounds clear to auscultation bilaterally. Respiration equal and unlabored. No wheezes, rales or rhonchi. HEART: Regular rate and rhythm without murmurs, rubs or gallops. S1 and S2 heard. EXTREMITIES: Normal range of motion, no edema. No clubbing or cyanosis. Peripheral pulses intact and strong. REVIEW OF LABS, ECG & MEDICAL DATA: LABS: White count 6.7, hemoglobin 13.5, platelets 205, sodium 140, potassium 4.6, chloride 107, BUN 25, creatinine 1.11, hemoglobin A1c 6.4, troponin less than 0.012, triglycerides 162, cholesterol 149, LDL 69.6, HDL 47 reviewed EKG: Sinus rhythm with first-degree block IMAGING: CT of the brain dated 05/03/2025 demonstrates no acute intracranial process, nonspecific mild to moderate white matter changes, likely secondary to chronic small vessel ischemic disease. CT angio of the head and neck dated 05/03/2025 demonstrates no evidence of dissection of the cervical internal carotid arteries or vertebral arteries, no significant stenosis at the right carotid bifurcation, approximately 30% stenosis at the origin of the left internal carotid artery secondary to calcified plaque, additionally there is approximately 50% stenosis at the origin of the left external carotid artery, no evidence of high-grade stenosis or intracranial aneurysm. Chest x-ray dated 05/03/2025 demonstrates chronic changes without acute pulmonary process, no significant change from prior. MRI dated 05/04/2025 demonstrates acute/subacute CVA involving the left frontal lobe deep white matter, nonspecific white matter changes, likely secondary to small vessel ischemic disease. Bilateral carotid duplex dated 05/04/2025 demonstrates no hemodynamically significant stenosis bilaterally. VITALS: Temp 98.9, pulse 60, respirations 17, blood pressure 136/79, O2 saturation 97% on room air IMPRESSION: 1. CVA 2. History of diabetes 3. History hypertension 4. History coronary artery disease with CABG. PLAN: LINDA with Dr. Rand on Wednesday. If okay, patient can be discharged on a 30-day event monitor. Continue to monitor on telemetry. Further recommendations based on patient's clinical course. Thank you for the consult and allowing us to participate in the care of this patient. Past Medical History Past Medical History: Diabetes Mellitus, Hypertension History of Any Multi-Drug Resistant Organisms: None Reported Past Surgical History: Coronary Bypass/CABG, Heart Catheterization With Stent Additional Past Surgical History / Comment(s): CABG in 2006 , heart cath in 2019 w/stent Date of Last Stent Placement:: 05/31/19 Past Psychological History: No Psychological Hx Reported Smoking Status: Former smoker Past Alcohol Use History: Occasional Past Drug Use History: None Reported Medications and Allergies Home Medications Medication Instructions Recorded Confirmed Type Atorvastatin [Lipitor] 40 mg PO HS #100 tab 06/02/19 05/03/25 Rx Clopidogrel [Plavix] 75 mg PO DAILY #100 tab 06/02/19 05/03/25 Rx Aspirin 81 mg PO BID 05/03/25 05/03/25 History Metoprolol Tartrate [Lopressor] 50 mg PO BID-W/MEALS 05/03/25 05/03/25 History Nitroglycerin Sl Tabs [Nitrostat] 0.4 mg SL Q5M PRN 05/03/25 05/03/25 History glipiZIDE XL [Glucotrol Xl] 5 mg PO DAILY 05/03/25 05/03/25 History lisinopriL [Zestril] 20 mg PO BID 05/03/25 05/03/25 History metFORMIN HCL [Glucophage] 1,000 mg PO BID 05/03/25 05/03/25 History Allergies Allergy/AdvReac Type Severity Reaction Status Date / Time adhesive tape AdvReac Rash/Hives Verified 05/29/19 09:39 codeine AdvReac Rash/Hives Verified 05/29/19 09:39 Physical Exam Vitals: Vital Signs Temp Pulse Pulse Resp BP BP Pulse Ox 05/05/25 08:10 98.9 F 60 17 136/79 97 05/05/25 06:10 64 157/78 05/05/25 03:42 97.9 F 58 L 18 138/78 97 05/04/25 23:10 97.5 F L 65 18 128/68 97 05/04/25 19:32 97.2 F L 66 18 158/76 96 05/04/25 17:50 98.3 F 18 187/76 96 05/04/25 17:45 183/89 05/04/25 16:36 98.2 F 75 19 175/95 98 05/04/25 13:00 78 18 160/91 97 05/04/25 12:00 80 18 154/85 97 05/04/25 11:00 84 18 152/84 97 Intake and Output 05/04/25 05/05/25 05/05/25 22:59 06:59 14:59 Intake Total 10 Balance 10 Intake: IV 10 Invasive Line 1 10 Other: Voiding Method Toilet Toilet Toilet # Voids 2 Weight 83.915 kg 88.5 kg Results 05/03/25 14:31 05/03/25 14:31 Lipids 05/03/25 Range/Units 14:31 Triglycerides 162.00 H (0.00-149.00) mg/dL Cholesterol 149.00 (0.00-200.00) mg/dL HDL Cholesterol 47.00 (40.00-60.00) mg/dL Cholesterol/HDL Ratio 3.17 Ratio Current Medications Generic Name Dose Route Start Last Admin Trade Name Remberto PRN Reason Stop Dose Admin Aspirin 325 mg 05/04/25 13:00 05/05/25 08:10 Aspirin 325 Mg Tab PO 325 mg DAILY NAYELI Administration Atorvastatin Calcium 40 mg 05/03/25 17:15 05/05/25 08:11 Atorvastatin 40 Mg Tab PO 40 mg DAILY NAYELI Administration Clopidogrel Bisulfate 75 mg 05/04/25 09:00 05/05/25 08:10 Clopidogrel 75 Mg Tab PO 75 mg DAILY NAYELI Administration Dextrose/Water 25 ml 05/04/25 09:03 Dextrose 50% Syringe 50 Ml IVP PER PROTOCOL PRN Hypoglycemia Protocol Dextrose/Water 50 ml 05/04/25 09:03 Dextrose 50% Syringe 50 Ml IVP PER PROTOCOL PRN Hypoglycemia Protocol Glipizide 2.5 mg 05/04/25 09:00 05/05/25 08:10 Glipizide 5 Mg Tab PO 2.5 mg BID NAYELI Administration Insulin Human Lispro 0 unit 05/05/25 12:00 Insulin Lispro (Humalog) 100 Unit/Ml 10 Ml Vl SQ Q6H NAYELI Protocol Lisinopril 20 mg 05/03/25 21:00 05/05/25 08:10 Lisinopril 20 Mg Tab PO 20 mg BID NAYELI Administration Metoprolol Tartrate 50 mg 05/03/25 17:30 05/05/25 06:08 Metoprolol Tartrate 50 Mg Tab PO 50 mg BID-W/MEALS NAYELI Administration Pantoprazole Sodium 40 mg 05/04/25 09:15 05/05/25 08:11 Pantoprazole 40 Mg/10 Ml Vial IVP 40 mg DAILY NAYELI Administration Intake and Output 05/04/25 05/05/25 05/05/25 22:59 06:59 14:59 Intake Total 10 Balance 10 Intake: IV 10 Invasive Line 1 10 Other: Voiding Method Toilet Toilet Toilet # Voids 2 Weight 83.915 kg 88.5 kg 05/03/25 14:31 05/03/25 14:31
[2025-05-05] MEDS: INSULIN LISPRO (HumaLOG) 100 UNIT/ML 10 mL VL SQ SCH (12:50)
[2025-05-05 12:51] LABS: Glucose,Whole Blood 176 mg/dL (70-110)
--- NOTE | 2025-05-05 14:18 | P.PN ---
Subjective Progress Note Date: 05/05/25 This is a pleasant 74-year-old gentleman with past medical history significant for CAD, CABG with Dr. Richter, cardiac stents 2019- Dr. Rand, hypertension, diabetes mellitus, former nicotine dependence, obesity and multiple other medical issues presented to the ER with complaints of right upper extremity weakness, garbled speech. Reports earlier in the week around Wednesday developed visual disturbance in the left eye as if he was looking through a kaleidoscope which resolved within a few minutes. Attributed it to dirty glasses as it never reoccurred. Wednesday night after dinner, developed garbled speech. Reports he understood and was able to process what was being said to him just his speech wa s messed up. states she did not notice any facial drooping at that time as patient "normally smirks-making it difficult to notice". morning speech appeared normal, patient and proceeded to the gym, came back home to eat brunch. Sat down at his desk, took his blood pressure reporting a systolic blood pressure in the 180s, attempted to write a check for a bill and was unable to hold the pen in his right hand. Denies missing any medications, endorses medication compliance, but does not check his sugars at home. he reports his tongue felt heavy, garbled speech reoccurred and they proceeded to the ER. Shortly after arriving to the ER, his speech cleared up. disclosed that his 3rd and 4th digits of his right hand weaker, difficulty with performing fine motor skills. Reports prior right hand trauma years ago while carrying a heavy couch, overstretched his 3rd and 4th digit of the right hand with pain lasting for months. Often at night, 3rd and 4th digits of right hand become numb denies burning sensation. Patient states his right hand gets numb when walking outsid e. Reports right hand numbness during the night. Brain CT nonacute. Angiographic CT reported no evidence of dissection of the cervical internal carotid arteries or vertebral arteries no significant stenosis of the right carotid bifurcation. Approximately 30% stenosis at the origin of the left in ternal carotid artery secondary to calcified plaque. Additionally there is approximately 50% stenosis at the origin of the left external carotid artery. No evidence of high-grade stenosis or intracranial aneurysm. 05/05. Patient seen examined. States he feels much better. Weakness of right extremity is improved REVIEW OF SYSTEMS: CONSTITUTIONAL: No fever, no malaise,. CARDIOVASCULAR: No chest pain, no palpitations, no syncope. PULMONARY: No shortness of breath, no cough, GASTROINTESTINAL: No diarrhea, no nausea, no vomiting, no abdominal pain. NEUROLOGICAL: No headaches, no weakness, PHYSICAL EXAMINATION: GENERAL: The patient is alert and oriented x3, not in any acute distress. Well developed, well nourished. HEENT: Pupils are round and equally reacting to light. EOMI. No scleral icterus. No conjunctival pallor. Normocephalic, atraumatic. No pharyngeal erythema. No thyromegaly. CARDIOVASCULAR: S1 and S2 present. No murmurs, rubs, or gallops. PULMONARY: Chest is clear to auscultation, no wheezing or crackles. ABDOMEN: Soft, nontender, nondistended, normoactive bowel sounds. No palpable organomegaly. MUSCULOSKELETAL: No joint swelling or deformity. EXTREMITIES: No cyanosis, clubbing, or pedal edema. NEUROLOGICAL: Gross neurological examination did not reveal any focal deficits. SKIN: No rashes. Assessment and plan Acute CVA Hypertension, uncontrolled CAD, history of CABG history of cardiac stents Diabetes mellitus, hyperglycemic on admission, reports his last A1c was less than 6, hemoglobin A1c pending. Monitor vital signs Monitor CBC Monitor CMP Continue telemetry monitoring Continu neurochecks Continue aspirin, Plavix Continue Lipitor Continue Lopressor and lisinopril Cardiology planning LINDA on Wednesday Neurology following Labs and medication were reviewed.. Continue same treatment. Continue with symptomatic treatment. Resume home medication. Monitor labs and vitals. DVT and GI prophylaxis. Further recommendations as per clinical course of the patient Dictation was produced using [employer] dictation software. please excuse any grammatical, word or spelling errors. Objective - Vital Signs Vital signs: Vital Signs Temp 98.1 F 05/05/25 12:00 Pulse 62 05/05/25 12:00 Resp 17 05/05/25 12:00 BP 150/80 05/05/25 12:00 Pulse Ox 98 05/05/25 12:00 FiO2 Intake & Output 05/04/25 05/05/25 05/05/25 18:59 06:59 18:59 Intake Total 368 Balance 368 Weight 83.915 kg 88.5 kg Intake: IV 10 Invasive Line 1 10 Oral 358 Other: Voiding Method Toilet Toilet Toilet # Voids 2 - Labs CBC & Chem 7: 05/03/25 14:31 05/03/25 14:31 Labs: Abnormal Lab Results - Last 24 Hours (Table) 05/03/25 05/03/25 05/05/25 Range/Units 14:31 14:31 08:03 POC Glucose (mg/dL) 123 H (70-110) mg/dL Hemoglobin A1c 6.4 H (<=6.0) % Triglycerides 162.00 H (0.00-149.00) mg/dL 05/05/25 Range/Units 12:50 POC Glucose (mg/dL) 176 H (70-110) mg/dL Hemoglobin A1c (<=6.0) % Triglycerides (0.00-149.00) mg/dL
[2025-05-05 16:20] LABS: Glucose,Whole Blood 83 mg/dL (70-110)
--- NOTE | 2025-05-05 16:38 | P.PN ---
Subjective Progress Note Date: 05/05/25 Patient was seen for a follow-up. Patient states his right hand is getting better. No new concerns. No new focal symptoms. Patient is sitting comfortably in the recliner. Patient's was also by the bedside. Objective - Vital Signs Vital signs: Vital Signs Temp 98.1 F 05/05/25 12:00 Pulse 62 05/05/25 12:00 Resp 17 05/05/25 12:00 BP 150/80 05/05/25 12:00 Pulse Ox 98 05/05/25 12:00 FiO2 Intake & Output 05/04/25 05/05/25 05/05/25 18:59 06:59 18:59 Intake Total 378 Balance 378 Weight 83.915 kg 88.5 kg Intake: IV 20 Invasive Line 1 20 Oral 358 Other: Voiding Method Toilet Toilet Toilet # Voids 2 - Exam Examination is nonfocal. Mentation, speech and language functions are normal. Right hogshead mat assembler is normal. Interossei normal. - Labs CBC & Chem 7: 05/03/25 14:31 05/03/25 14:31 Labs: Abnormal Lab Results - Last 24 Hours (Table) 05/05/25 05/05/25 Range/Units 08:03 12:50 POC Glucose (mg/dL) 123 H 176 H (70-110) mg/dL Assessment and Plan Assessment: * Acute ischemic stroke * Recurrent TIAs possible recurrent TIAs, in different vascular territories. He had 1 episode of transient kaleidoscope sensation with the left eye, then he had some speech difficulty that lasted for a few hours. Now he has developed weakness of the right hand. Rule out cardioembolic source. * Hypertension * Hyperlipidemia * Diabetes * Coronary artery disease, history of bypass surgery Plan: MRI of the brain without contrast, revealed acute/subacute CVA involving the left frontal lobe deep white matter. Nonspecific white matter changes, likely secondary to small vessel ischemic disease. Await 2-D echo with bubble study to rule out PFO Cardiology input appreciated. Patient undergoing LINDA on Wednesday. CTA head and neck showed: No evidence of dissection of the cervical internal carotid arteries or vertebral arteries. No significant stenosis at the right carotid bifurcation. Approximately 30% stenosis at the origin of the left internal carotid artery secondary to calcified plaque. Additionally, there is approximately 50% stenosis at the origin of the left external carotid artery. No evidence of high-grade stenosis or intracranial aneurysm. Carotid Doppler, revealed no significant stenosis in either ICA. Antegrade flow in both vertebral arteries. Fasting a.m. lipid panel with cholesterol 149, LDL 69, HDL 47 and triglycerides 162.. Continue Lipitor 40 mg daily. Hemoglobin A1c 6.4, well-controlled Permissive hypertension for next 24-48 hours Patient has been on aspirin 81 mg daily and Plavix 75 mg daily. We will increase aspirin to 325 mg daily for now pending above workup. Continue Plavix. Neuro checks every 4 hours. Telemetry monitoring rule out any arrhythmia PT, OT, speech therapy DVT prophylaxis: Patient low risk. Patient ambulatory.
[2025-05-05 23:18] LABS: Glucose,Whole Blood 134 mg/dL (70-110)
[2025-05-06 06:14] LABS: Glucose,Whole Blood 119 mg/dL (70-110)
--- NOTE | 2025-05-06 09:48 | P.PN ---
Subjective Progress Note Date: 05/06/25 This is Jah Motta NP, I'm dictating on behalf of Dr. Zavala's H&P and A&P. Patient was interviewed and examined. Patient is a 74-year-old male, patient of Dr. Rand with a past medical history that includes coronary artery disease, diabetes, hypertension, and coronary bypass grafting who presented to the emergency department for slurred speech and right arm weakness. Symptoms started on 625 around 6 PM that night. noticed slurring in the patient's speech and she could not understand anything he was saying. Patient was also exhibiting weakness in his right arm and having difficulty holding things. He has no past history of stroke. After arrival to the emergency department symptoms had mostly resolved but was still having some weakness in his right arm. He had appreciable right facial droop. He reports a visual disturbance approximately 2 days ago where he had kaleidoscope vision in his left eye. That has since resolved. Cardiology was consulted secondary to possible CVA for LINDA. Patient reports that his symptoms have nearly completely resolved. He is not experiencing any significant residual deficits. MRI does show CVA involving the left frontal lobe deep white matter. 05/06/2025-patient remains normal sinus rhythm on the monitor. Continues to report that he is feeling okay. GENERAL: Well-appearing, well-nourished and in no acute distress. NECK: Supple without JVD or thyromegaly. LUNGS: Breath sounds clear to auscultation bilaterally. Respiration equal and unlabored. No wheezes, rales or rhonchi. HEART: Regular rate and rhythm without murmurs, rubs or gallops. S1 and S2 heard. EXTREMITIES: Normal range of motion, no edema. No clubbing or cyanosis. Peripheral pulses intact and strong. VITALS: Temp 97.4, pulse 57, respirations 17, blood pressure 145/82, O2 saturation 90% on room air TELEMETRY: Normal sinus rhythm LABS: No new labs since 05/03/2020 IMPRESSION: 1. CVA 2. History of diabetes 3. History hypertension 4. History coronary artery disease with CABG. PLAN: LINDA with Dr. Rand on Wednesday. If okay, patient can be discharged on a 30-day event monitor. Continue to monitor on telemetry. Further recommendations based on patient's clinical course. Objective - Vital Signs Vital signs: Vital Signs Temp 97.4 F L 05/06/25 08:08 Pulse 57 L 05/06/25 08:08 Resp 17 05/06/25 08:08 BP 145/82 05/06/25 08:08 Pulse Ox 98 05/06/25 08:08 FiO2 Intake & Output 05/05/25 05/06/25 05/06/25 18:59 06:59 18:59 Intake Total 496 20 128 Balance 496 20 128 Weight 87 kg Intake: IV 20 20 10 Invasive Line 1 20 20 10 Oral 476 118 Other: Voiding Method Toilet Toilet Toilet # Voids 3 3 - Labs CBC & Chem 7: 05/03/25 14:31 05/03/25 14:31 Labs: Abnormal Lab Results - Last 24 Hours (Table) 05/05/25 05/05/25 05/06/25 Range/Units 12:50 23:17 06:12 POC Glucose (mg/dL) 176 H 134 H 119 H (70-110) mg/dL
[2025-05-06 12:01] LABS: Glucose,Whole Blood 109 mg/dL (70-110)
[2025-05-06 16:45] LABS: Glucose,Whole Blood 168 mg/dL (70-110)
--- NOTE | 2025-05-06 16:54 | P.PN ---
Subjective Progress Note Date: 05/06/25 This is a pleasant 74-year-old gentleman with past medical history significant for CAD, CABG with Dr. Richter, cardiac stents 2019- Dr. Rand, hypertension, diabetes mellitus, former nicotine dependence, obesity and multiple other medical issues presented to the ER with complaints of right upper extremity weakness, garbled speech. Reports earlier in the week around Wednesday developed visual disturbance in the left eye as if he was looking through a kaleidoscope which resolved within a few minutes. Attributed it to dirty glasses as it never reoccurred. Wednesday night after dinner, developed garbled speech. Reports he understood and was able to process what was being said to him just his speech wa s messed up. states she did not notice any facial drooping at that time as patient "normally smirks-making it difficult to notice". morning speech appeared normal, patient and proceeded to the gym, came back home to eat brunch. Sat down at his desk, took his blood pressure reporting a systolic blood pressure in the 180s, attempted to write a check for a bill and was unable to hold the pen in his right hand. Denies missing any medications, endorses medication compliance, but does not check his sugars at home. he reports his tongue felt heavy, garbled speech reoccurred and they proceeded to the ER. Shortly after arriving to the ER, his speech cleared up. disclosed that his 3rd and 4th digits of his right hand weaker, difficulty with performing fine motor skills. Reports prior right hand trauma years ago while carrying a heavy couch, overstretched his 3rd and 4th digit of the right hand with pain lasting for months. Often at night, 3rd and 4th digits of right hand become numb denies burning sensation. Patient states his right hand gets numb when walking outsid e. Reports right hand numbness during the night. Brain CT nonacute. Angiographic CT reported no evidence of dissection of the cervical internal carotid arteries or vertebral arteries no significant stenosis of the right carotid bifurcation. Approximately 30% stenosis at the origin of the left in ternal carotid artery secondary to calcified plaque. Additionally there is approximately 50% stenosis at the origin of the left external carotid artery. No evidence of high-grade stenosis or intracranial aneurysm. 05/05. Patient seen examined. States he feels much better. Weakness of right extremity is improved 04/27. Patient seen and examined. No acute issues overnight. Vital signs stable REVIEW OF SYSTEMS: CONSTITUTIONAL: No fever, no malaise,. CARDIOVASCULAR: No chest pain, no palpitations, no syncope. PULMONARY: No shortness of breath, no cough, GASTROINTESTINAL: No diarrhea, no nausea, no vomiting, no abdominal pain. NEUROLOGICAL: No headaches, no weakness, PHYSICAL EXAMINATION: GENERAL: The patient is alert and oriented x3, not in any acute distress. Well developed, well nourished. HEENT: Pupils are round and equally reacting to light. EOMI. No scleral icterus. No conjunctival pallor. Normocephalic, atraumatic. No pharyngeal erythema. No thyromegaly. CARDIOVASCULAR: S1 and S2 present. No murmurs, rubs, or gallops. PULMONARY: Chest is clear to auscultation, no wheezing or crackles. ABDOMEN: Soft, nontender, nondistended, normoactive bowel sounds. No palpable organomegaly. MUSCULOSKELETAL: No joint swelling or deformity. EXTREMITIES: No cyanosis, clubbing, or pedal edema. NEUROLOGICAL: Gross neurological examination did not reveal any focal deficits. SKIN: No rashes. Assessment and plan Acute CVA Hypertension, uncontrolled CAD, history of CABG history of cardiac stents Diabetes mellitus, hyperglycemic on admission, reports his last A1c was less t rock 6, hemoglobin A1c pending. Monitor vital signs Monitor CBC Monitor CMP Continue telemetry monitoring Continu neurochecks Continue aspirin, Plavix Continue Lipitor Continue Lopressor and lisinopril Cardiology planning LINDA on Wednesday Neurology following Labs and medication were reviewed.. Continue same treatment. Continue with symptomatic treatment. Resume home medication. Monitor labs and vitals. DVT and GI prophylaxis. Further recommendations as per clinical course of the patient Dictation was produced using [employer] dictation software. please excuse any grammatical, word or spelling errors. Objective - Vital Signs Vital signs: Vital Signs Temp 97.4 F L 05/06/25 08:08 Pulse 62 05/06/25 15:57 Resp 17 05/06/25 15:57 BP 136/72 05/06/25 15:57 Pulse Ox 97 05/06/25 15:57 FiO2 Intake & Output 05/05/25 05/06/25 05/06/25 18:59 06:59 18:59 Intake Total 496 20 256 Balance 496 20 256 Weight 87 kg Intake: IV 20 20 20 Invasive Line 1 20 20 20 Oral 476 236 Other: Voiding Method Toilet Toilet Toilet # Voids 3 3 - Labs CBC & Chem 7: 05/03/25 14:31 05/03/25 14:31 Labs: Abnormal Lab Results - Last 24 Hours (Table) 05/05/25 05/06/25 05/06/25 Range/Units 23:17 06:12 16:44 POC Glucose (mg/dL) 134 H 119 H 168 H (70-110) mg/dL
[2025-05-06 23:27] LABS: Glucose,Whole Blood 124 mg/dL (70-110)
--- NOTE | 2025-05-07 02:00 | P.PN ---
Subjective Progress Note Date: 05/06/25 Patient was seen for a follow-up. Patient states his right hand is getting better. No new concerns. No new focal symptoms. patient is walking in the room,with normal gait. Patient's was also by the bedside. Objective - Vital Signs Vital signs: Vital Signs Temp 97.4 F L 05/06/25 08:08 Pulse 62 05/06/25 15:57 Resp 17 05/06/25 15:57 BP 136/72 05/06/25 15:57 Pulse Ox 97 05/06/25 15:57 FiO2 Intake & Output 05/05/25 05/06/25 05/06/25 18:59 06:59 18:59 Intake Total 496 20 256 Balance 496 20 256 Weight 87 kg Intake: IV 20 20 20 Invasive Line 1 20 20 20 Oral 476 236 Other: Voiding Method Toilet Toilet Toilet # Voids 3 3 - Exam Examination is nonfocal. Mentation, speech and language functions are normal. Right household appliance assembler is normal. Interossei normal. patient is walking normally. - Labs CBC & Chem 7: 05/03/25 14:31 05/03/25 14:31 Labs: Abnormal Lab Results - Last 24 Hours (Table) 05/05/25 05/06/25 Range/Units 23:17 06:12 POC Glucose (mg/dL) 134 H 119 H (70-110) mg/dL Assessment and Plan Assessment: * Acute ischemic stroke * Recurrent TIAs possible recurrent TIAs, in different vascular territories. He had 1 episode of transient kaleidoscope sensation with the left eye, then he had some speech difficulty that lasted for a few hours. Now he has developed weakness of the right hand. Rule out cardioembolic source. * Hypertension * Hyperlipidemia * Diabetes * Coronary artery disease, history of bypass surgery Plan: MRI of the brain without contrast, revealed acute/subacute CVA involving the left frontal lobe deep white matter. Nonspecific white matter changes, likely secondary to small vessel ischemic disease. Await 2-D echo with bubble study to rule out PFO Cardiology input appreciated. Patient undergoing LINDA on Wednesday. CTA head and neck showed: No evidence of dissection of the cervical internal carotid arteries or vertebral arteries. No significant stenosis at the right carotid bifurcation. Approximately 30% stenosis at the origin of the left internal carotid artery secondary to calcified plaque. Additionally, there is approximately 50% stenosis at the origin of the left external carotid artery. No evidence of high-grade stenosis or intracranial aneurysm. Carotid Doppler, revealed no significant stenosis in either ICA. Antegrade flow in both vertebral arteries. Fasting a.m. lipid panel with cholesterol 149, LDL 69, HDL 47 and triglycerides 162.. Continue Lipitor 40 mg daily. Hemoglobin A1c 6.4, well-controlled Permissive hypertension for next 24-48 hours Patient has been on aspirin 81 mg daily and Plavix 75 mg daily. We will increase aspirin to 325 mg daily for now pending above workup. Continue Plavix. Neuro checks every 4 hours. Telemetry monitoring rule out any arrhythmia PT, OT, speech therapy DVT prophylaxis: Patient low risk. Patient ambulatory. Dr. Bhavik Cruz to resume neurology service in the morning.
[2025-05-07 06:07] LABS: Glucose,Whole Blood 139 mg/dL (70-110)
--- NOTE | 2025-05-07 08:53 | P.PN ---
Subjective Progress Note Date: 05/07/25 The patient was seen and evaluated this morning. He is feeling better. No residual symptoms at this point. The plan is to pursue a LINDA later on today. The physical examination is remarkable for regular rhythm with a soft systolic murmur and clear breathing sounds bilaterally and no edema was noted IMPRESSION: 1. CVA 2. History of diabetes 3. History hypertension 4. History coronary artery disease with CABG. PLAN: LINDA this morning Objective - Vital Signs Vital signs: Vital Signs Temp 97.5 F L 05/07/25 04:22 Pulse 67 05/07/25 04:22 Resp 17 05/07/25 04:22 BP 135/76 05/07/25 04:22 Pulse Ox 96 05/07/25 04:22 FiO2 Intake & Output 05/06/25 05/07/25 05/07/25 18:59 06:59 18:59 Intake Total 496 20 Balance 496 20 Weight 86.9 kg Intake: IV 20 20 Invasive Line 1 20 20 Oral 476 Other: Voiding Method Toilet Toilet # Voids 2 - Labs CBC & Chem 7: 05/03/25 14:31 05/03/25 14:31 Labs: Abnormal Lab Results - Last 24 Hours (Table) 05/06/25 05/06/25 05/07/25 Range/Units 16:44 23:26 06:06 POC Glucose (mg/dL) 168 H 124 H 139 H (70-110) mg/dL
[2025-05-07] MEDS: BENZOCAINE SPRAY 1 EACH TOPICAL ONE (09:27)
[2025-05-07] MEDS: fentaNYL (PF) 50 MCG/1 ML VIAL IVP ONE ×2 (09:41)
[2025-05-07] MEDS: MIDAZOLAM 2 MG/2 ML VIAL IVP ONE ×4 (09:41→09:45)
--- NOTE | 2025-05-07 10:36 | P.PCN ---
Date of Procedure: 05/07/25 Operative Findings: TRANSESOPHAGEAL ECHOCARDIOGRAM CST: AJITH RAHMAN MD, RPVI INDICATION: Stroke SEDATION: Conscious sedation COMPLICATION: None LEVEL OF SEDATION Moderate with sedation legs of 22 minutes PROCEDURE DESCRIPTION: After obtaining an informed consent, the patient was brought to transesophageal echocardiogram room. Pulse oximetry and heart monitors were attached to the patient. The patient throat was sprayed using lidocaine. The patient was turned into left lateral position. After that a bite guard was placed. After an appropriate conscious sedation was initiated, the transesophageal echocardiogram was advanced through a bite guard into the mid esophagus. A 2-D echocardiogram images, color Doppler images, continuous wave images, pulse-wave images, of various cardiac structure were performed. After that the transesophageal echocardiogram probe was advanced into the stomach and fixed to obtain transgastric view was. The probe was brought into the mid esophagus. Inter-atrial septum was interrogated using 2D images, color Doppler images, and then contrast study. After that transesophageal echocardiogram was withdrawn out and upon withdrawing the descending thoracic aorta all the way up to the arch was evaluated. CONCLUSION: 1. Aneurysmal interatrial septum with fenestrated septum and evidence of large PFO and ASD and bidirectional shunt 2. Intact left atrial appendage with no evidence of thrombus 3. Mildly impaired LV function with EF between 45 to 50% 4. Overall no significant valvular abnormalities noted 5. No pericardial effusion
[2025-05-07 12:05] LABS: Glucose,Whole Blood 118 mg/dL (70-110)
--- NOTE | 2025-05-07 12:16 | P.PN ---
Subjective Progress Note Date: 05/07/25 H&P Date: 05/04/25 Chief Complaint: Garbled speech, right hand weakness This is a pleasant 74-year-old gentleman with past medical history significant for CAD, CABG with Dr. Richter, cardiac stents 2019- Dr. Rand, hypertension, diabetes mellitus, former nicotine dependence, obesity and multiple other medical issues presented to the ER with complaints of right upper extremity weakness, garbled speech. Reports earlier in the week around Wednesday developed visual disturbance in the left eye as if he was looking through a kaleidoscope which resolved within a few minutes. Attributed it to dirty glasses as it never reoccurred. Wednesday night after dinner, developed garbled speech. Reports he understood and was able to process what was being said to him just his speech was messed up. states she did not notice any facial drooping at that time as patient "normally smirks-making it difficult to notice". morning speech appeared normal, patient and proceeded to the gym, came back home to eat brunch. Sat down at his desk, took his blood pressure reporting a systolic blood pressure in the 180s, attempted to write a check for a bill and was unable to hold the pen in his right hand. Denies missing any medications, endorses med ication compliance, but does not check his sugars at home. he reports his tongue felt heavy, garbled speech reoccurred and they proceeded to the ER. Shortly after arriving to the ER, his speech cleared up. disclosed that his 3rd and 4th digits of his right hand weaker, difficulty with performing fine motor skills. Reports prior right hand trauma years ago while carrying a heavy couch, overstretched his 3rd and 4th digit of the right hand with pain lasting for months. Often at night, 3rd and 4th digits of right hand become numb denies burning sensation. Patient states his right hand gets numb when walking outside. Reports right hand numbness during the night. Brain CT nonacute. Angiographic CT reported no evidence of dissection of the cervical internal carotid arteries or vertebral arteries no significant stenosis of the right carotid bifurcation. Approximately 30% stenosis at the origin of the left internal carotid artery secondary to calcified plaque. Additionally there is ap proximately 50% stenosis at the origin of the left external carotid artery. No evidence of high-grade stenosis or intracranial aneurysm. 05/07/2025 MRI of the brain reported acute/subacute CVA involving the left frontal lobe deep white matter. Nonspecific white matter changes, likely s econdary to small vessel ischemic disease. LINDA/echo with bubble study ordered, pending. Right upper extremity weakness improved. Neurowork-up in progress, scheduled for LINDA. Telemetry sinus rhythm. Feels much better and eager for discharge. Denies chest pain, palpitations or shortness of breath. Ambulating, tolerating exertion well. Denies lightheadedness, dizziness or focal deficits. Objective - Vital Signs Vital signs: Vital Signs Temp 97.5 F L 05/07/25 04:22 Pulse 67 05/07/25 04:22 Resp 17 05/07/25 04:22 BP 135/76 05/07/25 04:22 Pulse Ox 96 05/07/25 04:22 FiO2 Intake & Output 05/06/25 05/07/25 05/07/25 18:59 06:59 18:59 Intake Total 496 20 Balance 496 20 Weight 86.9 kg Intake: IV 20 20 Invasive Line 1 20 20 Oral 476 Other: Voiding Method Toilet Toilet # Voids 2 - Exam VITAL SIGNS: [Reviewed] GENERAL: Sitting up in bed, alert and oriented x 3, no acute distress.conversing fluently and appropriately HEENT: Atraumatic, normocephalic ,conjunctivae normal. eyes normal,no facial d kim. NECK: Supple, no JVD. CARDIOVASCULAR: S1, S2 regular. systolic murmur RESPIRATION: Unlabored, equal air entry, clear to auscultation. ABDOMEN: Soft, nondistended, nontender.No guarding. no masses palpable. +BS LEGS: No edema. no swelling NERVOUS SYSTEM: Cranial N 2-12 grossly normal. Strength and sensation grossly intact. Skin: Warm and dry, no rash. - Labs CBC & Chem 7: 05/03/25 14:31 05/03/25 14:31 Labs: Abnormal Lab Results - Last 24 Hours (Table) 05/06/25 05/06/25 05/07/25 Range/Units 16:44 23:26 06:06 POC Glucose (mg/dL) 168 H 124 H 139 H (70-110) mg/dL Assessment and Plan Assessment: Acute to subacute CVA, possible recurrent TIAs.Dysarthria, right upper extremity weakness,improved Hypertension Hyperlipidemia CAD, history of CABG history of cardiac stents Diabetes mellitus, hyperglycemic on admission, reports his last A1c was less than 6, hemoglobin A1c 6.4. Plan: Continue on current medication regimen ,monitoring and symptomatic tr eatment. maintained on aspirin, statin. Diet has been adjusted to consistent carb diet. Maintain tight glycemic control. Discharge planning in progress pending completion of neurowork-up/LINDA, final DC recommendations and clearance per neurology and cardiology. The impression and plan of care has been dictated as directed. : I performed a history and examination of this patient, discussed the same with the dictator. I agree with the dictator's note ,documented as a scribe. Any additional findings or plans will be noted.
--- NOTE | 2025-05-07 14:33 | P.PN ---
Subjective Progress Note Date: 05/07/25 I am seeing the patient for the first time during this admission. Please refer to Dr. Paez's notes for further details. The patient's is at bedside. The patient states he had weakness of the right hand and difficulty writing and that is what brought him to hospital. He feels weakness predominately 4th and 5th digit weakness and denies neck pain. states, he was slurred speech and it seems symptoms began this past . He is getting better. Today he had LINDA and was told he had large PFO and they wanted to be addressed as inpatient. Prior to this hospital visit, he was on ASA and Plavix. Objective - Vital Signs Vital signs: Vital Signs Temp 97.5 F L 05/07/25 04:22 Pulse 67 05/07/25 04:22 Resp 17 05/07/25 04:22 BP 135/76 05/07/25 04:22 Pulse Ox 96 05/07/25 04:22 FiO2 Intake & Output 05/06/25 05/07/25 05/07/25 18:59 06:59 18:59 Intake Total 496 20 118 Balance 496 20 118 Weight 86.9 kg Intake: IV 20 20 Invasive Line 1 20 20 Oral 476 118 Other: Voiding Method Toilet Toilet # Voids 2 - Exam General: Sitting in a recliner chair and is not in acute distress. Neuro: The patient is awake alert oriented to self place and time. Is following simple commands. No aphasia no neglect. Pupils are round about 3 mm bilaterally and reactive to light. Visual dwyer are full to confrontation. Extraocular movements intact no nystagmus. No facial weakness. No dysarthria Motor: The strength is 5 out of 5 throughout normal tone and bulk Sensation is normal to touch throughout Cerebellar is normal [id number] - Labs CBC & Chem 7: 05/03/25 14:31 05/03/25 14:31 Labs: Abnormal Lab Results - Last 24 Hours (Table) 05/06/25 05/06/25 05/07/25 Range/Units 16:44 23:26 06:06 POC Glucose (mg/dL) 168 H 124 H 139 H (70-110) mg/dL 05/07/25 Range/Units 12:02 POC Glucose (mg/dL) 118 H (70-110) mg/dL Assessment and Plan Assessment: * Acute ischemic stroke. Etiology of stroke is due to multifactorial: recurrent TIA's, HTN, hyperlipidemia, DM, hx CAD, age and large PFO * Large PFO on LINDA * Recurrent TIAs possible recurrent TIAs, in different vascular territories. He had 1 episode of transient kaleidoscope sensation with the left eye, then he had some speech difficulty that lasted for a few hours. Now he has developed weakness of the right hand. Rule out cardioembolic source. * Hypertension * Hyperlipidemia * Diabetes * Coronary artery disease, history of bypass surgery Plan: MRI of the brain without contrast, revealed acute/subacute CVA involving the left frontal lobe deep white matter. Nonspecific white matter changes, likely secondary to small vessel ischemic disease. Cardiology input appreciated. LINDA today: 1. Aneurysmal interatrial septum with fenestrated septum and evidence of large PFO and ASD and bidirectional shunt; 2. Intact left atrial appendage with no evidence of thrombus; 3. Mildly impaired LV function with EF between 45 to 50%; 4. Overall no significant valvular abnormalities noted; 5. No pericardial effusionon The patient and the would like the PFO to be addressed as inpatient. Patient has been on aspirin 81 mg daily and Plavix [address] Paez increased ASA to 325mg daily but I went back down to 81mg since no more benefit with increase in ASA dose. I recommend of switching Plavix to Brilinta since patient failed on his home antiplatelets. Will get cardiology approval of switching Plavix to Brilinta. CTA head and neck showed: No evidence of dissection of the cervical internal carotid arteries or vertebral arteries. No significant stenosis at the right carotid bifurcation. Approximately 30% stenosis at the origin of the left internal carotid artery secondary to calcified plaque. Additionally, there is approximately 50% stenosis at the origin of the left external carotid artery. No evidence of high-grade stenosis or intracranial aneurysm. Carotid Doppler, revealed no significant stenosis in either ICA. Antegrade flow in both vertebral arteries. Fasting a.m. lipid panel with cholesterol 149, LDL 69, HDL 47 and triglycerides 162.. Continue Lipitor 40 mg daily. Hemoglobin A1c 6.4, well-controlled Permissive hypertension for next 24 hours Neuro checks every 4 hours. Telemetry monitoring rule out any arrhythmia. Recommend 30 days event monitor. PT, OT, speech therapy DVT prophylaxis: Patient low risk. Patient ambulatory. The plan is discussed with patient, his and his nurse. Time with Patient: Less than 30
[2025-05-07 16:43] LABS: Glucose,Whole Blood 122 mg/dL (70-110)
[2025-05-07 23:53] LABS: Glucose,Whole Blood 98 mg/dL (70-110)
[2025-05-08] MEDS: ASPIRIN 81 MG PO SCH (05:25)
[2025-05-08 05:58] LABS: Glucose,Whole Blood 105 mg/dL (70-110)
[2025-05-08] MEDS: MIDAZOLAM 2 MG/2 ML VIAL IVP ONE (11:02)
[2025-05-08] MEDS: LIDOCAINE 1% INJ 10MG/ML (20 ML MDV) SQ ONE (11:02)
[2025-05-08] MEDS: fentaNYL (PF) 50 MCG/ML 2 ML AMP IVP ONE (11:08)
[2025-05-08] MEDS: SODIUM CHLORIDE 0.9% 1,000 ML IV ONE (11:12)
[2025-05-08] MEDS: HEPARIN SODIUM 1,000 UN/ML (10ML VL) IVP ONE (11:26)
[2025-05-08] MEDS: IOPAMIDOL-370 100ML BTL INJ ONE (11:43)
--- NOTE | 2025-05-08 11:57 | P.PCN ---
Date of Procedure: 05/08/25 Operative Findings: PERCUTANEOUS CLOSURE OF FENESTRATED INTERATRIAL SEPTUM PERFORMING PHYSICIAN: Rory Rand MD, VI PROCEDURE PERFORMED: 1. Successful percutaneous closure of PFO using 30 mm Amplatzer Occluder with an excellent results and without any residual shunt. 2. Intracardiac echocardiogram imaging. 3. Right atrial angiogram. 4. Ultrasound-guided access of the right common femoral vein this time to INDICATION: 74-year-old gentleman who was admitted with stroke felt to be embolic. He under went a LINDA which showed PFO with bidirectional shunt APPROACH: Right common femoral vein 2 COMPLICATION: None. LEVEL OF SEDATION: Moderate with sedation length of 42 minutes. PROCEDURE DESCRIPTION: After obtaining informed consent, the patient was brought to the cardiac lab asst. The right common femoral vein was cannulated x2 using micropuncture technique under ultrasound guidance, the micropuncture wire passed easily, then I placed two 8-Mauritanian sheath in the right groin. Subsequently I cannulated the left common femoral vein with the same technique and I placed an 8-Mauritanian sheath there as well. At that point, anticoagulation was initiated using heparin and the patient was given a bolus of 6,000 units of heparin IV with continuous ACT monitoring throughout the procedure. After that, the intracardiac echocardiogram probe was advanced through one of the venous sheath all the way to the right atrium where we did interrogate the interatrial septum and identified the patent foramen ovale which was measured about 35 mm. Subsequently, I did cross the defect using 0.035 J-wire with the backup support of multipurpose catheter. The wire was advanced all the way to the left upper pulmonary vein and subsequently the catheter was advanced over the wire to the left upper pulmonary vein. The 0.035 J-wire was pulled out and then I advanced a estefani wire. Subsequently, the multipurpose catheter was withdrawn out and the wire was left in the left upper pulmonary vein. After that, I did prep the Amplatzer PFO occluder under saline. The device was loaded into the joy loader, which was attached to the sheath. Subsequently, I did exchange my 8-Mauritanian sheath into the Shuttle sheath over a 0.035 estefani wire. The sheath was advanced all the way under fluoroscopy guidance to the left atrium. Subsequently, the dilator of the sheath was withdrawn out along with the wire. After that, I did load the Amplatzer occluder under continuous saline flush to the sheath. The device was advanced all the way through the sheath were I did where I did deploy initially the left atrial occluder and then I pulled back the sheath and the left atrial occluder all the way to the interatrial septum and then I deployed the right atrial occluder after that. Before I released the device, I did interrogate the septum using ice images on multiple views. After I realized that the device was stable en ough and in good position the device was released. Interrogation using ice was also performed after the device was released. By the end I did right atrial angiogram. The procedure was completed without any complication. POSTPROCEDURE MANAGEMENT: 1. Dual anti-platelet therapy. 2. Follow-up with the patient
[2025-05-08 12:30] LABS: Glucose,Whole Blood 116 mg/dL (70-110)
[2025-05-08] MEDS: SODIUM CHLORIDE 0.9% 1,000 ML IV SCH (13:12)
--- NOTE | 2025-05-08 14:39 | P.PN ---
Subjective Progress Note Date: 05/08/25 The patient was seen and evaluated this morning. He is feeling better. No residual symptoms at this point. The plan is to pursue a LINDA later on today. The physical examination is remarkable for regular rhythm with a soft systolic murmur and clear breathing sounds bilaterally and no edema was noted 05/08/2025 Patient seen and examined. He is scheduled for PFO closure today. He is currently on aspirin and Plavix. Received a call from Dr. Cruz and he would like to change the patient from Plavix to Brilinta. There is no problem with this from cardiology perspective. Blood pressure 122/72, heart rate 59, pulse ox 97% on room air. IMPRESSION: 1. CVA 2. History of diabetes 3. History hypertension 4. History coronary artery disease with CABG. PLAN: PFO closure today Further recommendations as patient progresses Nurse practitioner note has been reviewed, I agree with documented findings and plan of care. Patient was seen and examined. Objective - Vital Signs Vital signs: Vital Signs Temp 98.2 F 05/08/25 04:25 Pulse 59 L 05/08/25 04:25 Resp 18 05/08/25 04:25 BP 122/72 05/08/25 04:25 Pulse Ox 97 05/08/25 04:25 FiO2 Intake & Output 05/07/25 05/08/25 05/08/25 18:59 06:59 18:59 Intake Total 138 20 Balance 138 20 Weight 86.3 kg Intake: IV 20 20 Invasive Line 1 20 20 Oral 118 Other: Voiding Method Toilet # Voids 1 - Labs CBC & Chem 7: 05/03/25 14:31 05/03/25 14:31 Labs: Abnormal Lab Results - Last 24 Hours (Table) 05/07/25 05/07/25 Range/Units 12:02 16:41 POC Glucose (mg/dL) 118 H 122 H (70-110) mg/dL
--- NOTE | 2025-05-08 15:01 | P.PN ---
Subjective Progress Note Date: 05/08/25 H&P Date: 05/04/25 Chief Complaint: Garbled speech, right hand weakness This is a pleasant 74-year-old gentleman with past medical history significant for CAD, CABG with Dr. Richter, cardiac stents 2019- Dr. Rand, hypertension, diabetes mellitus, former nicotine dependence, obesity and multiple other medical issues presented to the ER with complaints of right upper extremity weakness, garbled speech. Reports earlier in the week around Wednesday developed visual disturbance in the left eye as if he was looking through a kaleidoscope which resolved within a few minutes. Attributed it to dirty glasses as it never reoccurred. Wednesday night after dinner, developed garbled speech. Reports he understood and was able to process what was being said to him just his speech was messed up. states she did not notice any facial drooping at that time as patient "normally smirks-making it difficult to notice". morning speech appeared normal, patient and proceeded to the gym, came back home to eat brunch. Sat down at his desk, took his blood pressure reporting a systolic blood pressure in the 180s, attempted to write a check for a bill and was unable to hold the pen in his right hand. Denies missing any medications, endorses med ication compliance, but does not check his sugars at home. he reports his tongue felt heavy, garbled speech reoccurred and they proceeded to the ER. Shortly after arriving to the ER, his speech cleared up. disclosed that his 3rd and 4th digits of his right hand weaker, difficulty with performing fine motor skills. Reports prior right hand trauma years ago while carrying a heavy couch, overstretched his 3rd and 4th digit of the right hand with pain lasting for months. Often at night, 3rd and 4th digits of right hand become numb denies burning sensation. Patient states his right hand gets numb when walking outside. Reports right hand numbness during the night. Brain CT nonacute. Angiographic CT reported no evidence of dissection of the cervical internal carotid arteries or vertebral arteries no significant stenosis of the right carotid bifurcation. Approximately 30% stenosis at the origin of the left internal carotid artery secondary to calcified plaque. Additionally there is ap proximately 50% stenosis at the origin of the left external carotid artery. No evidence of high-grade stenosis or intracranial aneurysm. 05/07/2025 MRI of the brain reported acute/subacute CVA involving the left frontal lobe deep white matter. Nonspecific white matter changes, likely s econdary to small vessel ischemic disease. LINDA/echo with bubble study ordered, pending. Right upper extremity weakness improved. Neurowork-up in progress, scheduled for LINDA. Telemetry sinus rhythm. Feels much better and eager for discharge. Denies chest pain, palpitations or shortness of breath. Ambulating, tolerating exertion well. Denies lightheadedness, dizziness or focal deficits. 05/08/2025 LINDA yesterday completed, reporting aneurysmal intra-atrial septum with fenestrated septum and evidence of large PFO and ASD and bidirectional shunt.intact left atrial appendage with no evidence of thrombus. Mildly impaired LV function with a EF between 45 to 50%. Overall no significant valvular abnormalities noted. No pericardial effusion. N.P.O., scheduled for PFO closure today. Ambulatory .denies any new neurological symptoms. Objective - Vital Signs Vital signs: Vital Signs Temp 98.2 F 05/08/25 04:25 Pulse 59 L 05/08/25 04:25 Resp 18 05/08/25 04:25 BP 122/72 05/08/25 04:25 Pulse Ox 97 05/08/25 04:25 FiO2 Intake & Output 05/07/25 05/08/25 05/08/25 18:59 06:59 18:59 Intake Total 138 20 255 Balance 138 20 255 Weight 86.3 kg Intake: IV 20 20 75 Invasive Line 1 20 20 10 Oral 118 180 Other: Voiding Method Toilet # Voids 1 - Exam VITAL SIGNS: [Reviewed] GENERAL: Sitting up in bed, alert and oriented x 3, no acute distress. HEENT: Atraumatic, normocephalic ,conjunctivae normal. eyes normal,no facial droop. NECK: Supple, no JVD. CARDIOVASCULAR: S1, S2 regular. systolic murmur RESPIRATION: Unlabored, equal air entry, clear to auscultation. ABDOMEN: Soft, nondistended, nontender.No guarding. +BS LEGS: No edema. no swelling NERVOUS SYSTEM: Cranial N 2-12 grossly normal. Strength and sensation grossly intact. Skin: Warm and dry, no rash. - Labs CBC & Chem 7: 05/03/25 14:31 05/03/25 14:31 Labs: Abnormal Lab Results - Last 24 Hours (Table) 05/07/25 05/08/25 Range/Units 16:41 12:28 POC Glucose (mg/dL) 122 H 116 H (70-110) mg/dL Assessment and Plan Assessment: Acute to subacute CVA, possible recurrent TIAs.Dysarthria, right upper extremity weakness,improved Hypertension Hyperlipidemia CAD, history of CABG history of cardiac stents Diabetes mellitus, hyperglycemic on admission, reports his last A1c was less than 6, hemoglobin A1c 6.4. Plan: Continue on current medication regimen ,monitoring and symptomatic treatment. Antiplatelet therapy as per neurology and cardiology. NPO, PFO closure pending. The impression and plan of care has been dictated as directed. : I performed a history and examination of this patient, discussed the same with the dictator. I agree with the dictator's note ,documented as a scribe. Any a dditional findings or plans will be noted.
[2025-05-08 16:23] LABS: Glucose,Whole Blood 234 mg/dL (70-110)
--- NOTE | 2025-05-08 17:24 | P.PN ---
Progress Note - Text Progress Note Date: 05/08/25 I went to see the patient but he was getting his PFO closed. I updated the Cardiology nurse practioner's that my recommendation to switch Plavix to Brilinta since patient failed Plavix.
[2025-05-09 00:04] LABS: Glucose,Whole Blood 116 mg/dL (70-110)
[2025-05-09 04:52] VITALS: RESP 16
[2025-05-09 05:59] LABS: Glucose,Whole Blood 96 mg/dL (70-110)
--- NOTE | 2025-05-09 08:20 | XR ---
EXAMINATION TYPE: XR chest 2V DATE OF EXAM: 05/09/2025 6:29 AM COMPARISON: 05/03/2025 CLINICAL INDICATION: Male, 74 years old with history of ASD/PFO placement: Shortness of breath TECHNIQUE: XR chest 2V views of the chest are obtained. FINDINGS: Scattered senescent parenchymal changes noted. Hyperinflation compatible with COPD. No evidence for infiltrate. No evidence for atelectasis. Heart size is stable. Mediastinal structures are stable and grossly unremarkable. No evidence for hilar prominence. Degenerative changes dorsal spine. IMPRESSION: 1. No evidence for acute pulmonary disease. [facility], , 05/09/2025 8:18 AM
[2025-05-09] MEDS: ASPIRIN 325 MG TAB PO SCH (09:00)
[2025-05-09] MEDS: CLOPIDOGREL 75 MG TAB PO SCH (10:00)
[2025-05-09 10:52] VITALS: BP 141/63; PULSE 66; TEMP 97.7
--- NOTE | 2025-05-09 11:14 | P.PN ---
Subjective Progress Note Date: 05/09/25 The patient was seen and evaluated this morning. He is feeling better. No residual symptoms at this point. The plan is to pursue a LINDA later on today. The physical examination is remarkable for regular rhythm with a soft systolic murmur and clear breathing sounds bilaterally and no edema was noted 05/08/2025 Patient seen and examined. He is scheduled for PFO closure today. He is currently on aspirin and Plavix. Received a call from Dr. Cruz and he would like to change the patient from Plavix to Brilinta. There is no problem with this from cardiology perspective. Blood pressure 122/72, heart rate 59, pulse ox 97% on room air. 05/09/2025 Patient seen and examined. Yesterday, patient underwent PFO closure with recommendations to continue dual antiplatelet therapy. Patient denies chest pain no shortness of breath, no lightheadedness or dizziness. No new symptoms today. Blood pressure 141/63, heart rate 66, pulse ox 99% on room air. IMPRESSION: 1. CVA 2. History of diabetes 3. History hypertension 4. History coronary artery disease with CABG. 5. PFO status post percutaneous closure 05/08 PLAN: Continue dual antiplatelet medications Patient is cleared for discharge from a cardiology perspective. He may follow- up in the office with Dr. Rand in 1 to 2 weeks. Nurse practitioner note has been reviewed, I agree with documented findings and plan of care. Patient was seen and examined. Objective - Vital Signs Vital signs: Vital Signs Temp 97.8 F 05/09/25 04:00 Pulse 60 05/09/25 04:00 Resp 16 05/09/25 04:00 BP 155/81 05/09/25 04:00 Pulse Ox 97 05/09/25 04:00 FiO2 Intake & Output 05/08/25 05/09/25 05/09/25 18:59 06:59 18:59 Intake Total 445 240 Balance 445 240 Weight 88.7 kg Intake: IV 85 Invasive Line 1 20 Oral 360 240 - Labs CBC & Chem 7: 05/03/25 14:31 05/03/25 14:31 Labs: Abnormal Lab Results - Last 24 Hours (Table) 05/08/25 05/08/25 05/09/25 Range/Units 12:28 16:22 00:03 POC Glucose (mg/dL) 116 H 234 H 116 H (70-110) mg/dL
--- NOTE | 2025-05-09 13:05 | CA ---
Transthoracic Echo Report Name: Mario Alberto Bhatia Age: 74 Gender: M : 1950 Exam Date: 05/09/2025 08:51 Exam Location: [facility] Ht (in): 65 Wt (lb): 190 Ordering Physician: Rory Rand MD ([id number]) Attending/Referring Phys: Metallurgical Tester Arlin Montenegro RDCS Procedure CPT: Indications: Post ASD/PFO Insertion Cardiac Hx: Technical Quality: Fair Contrast 1: Total Dose (mL): Contrast 2: Total Dose (mL): MEASUREMENTS (Male / Female) Normal Values 2D ECHO LV Diastolic Diameter PLAX 4.4 cm 4.2 - 5.9 / 3.9 - 5.3 cm LV Systolic Diameter PLAX 2.9 cm IVS Diastolic Thickness 1.2 cm 0.6 - 1.0 / 0.6 - 0.9 cm LVPW Diastolic Thickness 1.2 cm 0.6 - 1.0 / 0.6 - 0.9 cm LV Relative Wall Thickness 0.6 RV Internal Dim ED PLAX 2.7 cm LVOT Diameter 2.3 cm LA Systolic Diameter LX 4.5 cm 3.0 - 4.0 / 2.7 - 3.8 cm LV Diastolic Volume MOD BP 59.6 cm??? 67 - 155 / 56 - 104 cm??? LV Systolic Volume MOD BP 23.8 cm??? 22 - 58 / 19 - 49 cm??? LV Ejection Fraction MOD BP 60.1 % >= 55 % LV Cardiac Index MOD BP 1134.9 cm???/min???m??? LV Diastolic Volume MOD 4C 58.6 cm??? LV Systolic Volume MOD 4C 27.7 cm??? LV Ejection Fraction MOD 4C 52.7 % LV Cardiac Index MOD 4C 979.4 cm???/min???m??? LV Diastolic Length 4C 7.0 cm LV Systolic Length 4C 6.5 cm LV Diastolic Volume MOD 2C 58.5 cm??? LV Systolic Volume MOD 2C 19.6 cm??? LV Ejection Fraction MOD 2C 66.5 % LV Cardiac Index MOD 2C 1233.5 cm???/min???m??? LV Diastolic Length 2C 7.4 cm LV Systolic Length 2C 6.2 cm M-MODE Aortic Root Diameter MM 3.2 cm LA Systolic Diameter MM 4.0 cm LA Ao Ratio MM 1.2 AV Cusp Separation MM 1.3 cm DOPPLER AV Peak Velocity 169.8 cm/s AV Peak Gradient 11.5 mmHg AV Mean Velocity 128.6 cm/s AV Mean Gradient 7.0 mmHg AV Velocity Time Integral 38.6 cm LVOT Peak Velocity 88.1 cm/s LVOT Peak Gradient 3.1 mmHg LVOT Velocity Time Integral 19.7 cm LVOT Stroke Volume 85.1 cm??? LVOT Stroke Volume Index 44.0 ml/m??? LVOT Cardiac Index 2699.6 cm???/min???m??? AV Area Cont Eq vti 2.2 cm??? AV Area Cont Eq pk 2.2 cm??? Mitral E Point Velocity 96.7 cm/s Mitral A Point Velocity 82.9 cm/s Mitral E to A Ratio 1.2 MV Deceleration Time 244.0 ms MV E' Velocity 5.6 cm/s Mitral E to MV E' Ratio 17.1 TR Peak Velocity 177.1 cm/s TR Peak Gradient 12.6 mmHg FINDINGS Left Ventricle Left ventricular ejection fraction is estimated at 55-60 %. Mildly increased septal wall thickness. Normal left ventricular systolic function with no obvious regional wall motion abnormalities. Left ventricular cavity size normal. Right Ventricle Normal right ventricular size and function. Right ventricular systolic pressure within normal limits. Right Atrium Normal right atrial size. Left Atrium Mildly increased left atrial diameter. Septal Occluder is well seated. No shunt seen at the atrial level. Mitral Valve Structurally normal mitral valve. Trace to mild mitral regurgitation. No mitral stenosis. Aortic Valve Trileaflet aortic valve. Diffuse thickening (sclerosis) of the aortic valve cusps without reduced excursion. No aortic stenosis. Tricuspid Valve Structurally normal tricuspid valve. Mild tricuspid regurgitation. No tricuspid stenosis. Pulmonic Valve Structurally normal pulmonic valve. Trace pulmonic regurgitation. No pulmonic stenosis. Pericardium No pericardial or pleural effusion. Aorta Normal size aortic root and proximal ascending aorta. CONCLUSIONS Normal LV function Interatrial septal occlusion device is well-seated No shunting across the septum Previewed by: Dr. Tip Cowart MD (Electronically Signed) Final Date: 09 May 2025 13:04
--- NOTE | 2025-05-09 15:49 | P.DS ---
Providers Date of admission: 05/03/25 17:04 Expected date of discharge: 05/09/25 Attending physician: Luís Ma Consults: 05/03/25 17:03 Consult Physician Urgent Consulting Provider: Reena Paez Consult Reason/Comments: acute right sided weakness, suspected cva Do you want consulting provider notified?: Yes 05/04/25 12:48 Consult Physician Routine Consulting Provider: Rory Rand Consult Reason/Comments: Recurrent TIA, for LINDA. Rule out cardiac source Do you want consulting provider notified?: Yes Primary care physician: Luís Ma [facility] Course: Final Diagnoses: Acute ischemic CVA, multifactorial ,related to large PFO, recurrent TIAs , diabetes mellitus , CAD , hypertension Recurrent TIAs Large PFO reported per LINDA, status post percutaneous closure 05/08/2025 Hypertension CAD, history of CABG and cardiac stents Diabetes mellitus, hyperglycemic on admission, reports his last A1c was less than 6, hemoglobin A1c 6.4. Former nicotine dependence Hospital course:This is a pleasant 74-year-old gentleman with past medical history significant for CAD, CABG with Dr. Richter, cardiac stents 2018- Dr. Rand, hypertension, diabetes mellitus, former nicotine dependence, obesity and multiple other medical issues presented to the ER with complaints of right upper extremity weakness, garbled speech. Reports earlier in the week around Wednesday developed visual disturbance in the left eye as if he was looking through a kaleidoscope which resolved within a few minutes. Attributed it to dirty glasses as it never reoccurred. Wednesday night after dinner, developed garbled speech. Reports he understood and was able to process what was being said to him just his speech was messed up. states she did not notice any facial drooping at that time as patient "normally smirks-making it difficult to notice". morning speech appeared normal, patient and proceeded to the gym, came back home to eat brunch. Sat down at his desk, took his blood pressure reporting a systolic blood pressure in the 180s, attempted to write a check for a bill and was unable to hold the pen in his right hand. Denies missing any medications, endorses medication compliance, but does not check his sugars at home. he reports his tongue felt heavy, garbled speech reoccurred and they proceeded to the ER. Shortly after arriving to the ER, his speech cleared up. disclosed that his 3rd and 4th digits of his right hand weaker, difficulty with performing fine motor skills. Reports prior right hand trauma years ago while carrying a heavy couch, overstretched his 3rd and 4th digit of the right hand with pain lasting for months. Often at night, 3rd and 4th digits of right hand become numb denies burning sensation. Patient states his right hand gets numb when walking outside. Reports right hand numbness during the night. Brain CT nonacute. Angiographic CT reported no evidence of dissection of the cervical internal carotid arteries or vertebral arteries no significant stenosis of the right carotid bifurcation. Approximately 30% stenosis at the origin of the left internal carotid artery secondary to calcified plaque. Additionally there is approximately 50% stenosis at the origin of the left external carotid artery. No evidence of high-grade stenosis or intracranial aneurysm. 05/07/2025 MRI of the brain reported acute/subacute CVA involving the left frontal lobe deep white matter. Nonspecific white matter changes, likely secondary to small vessel ischemic disease. LINDA/echo with bubble study ordered, pending. Right upper extremity weakness improved. Neurowork-up in progress, scheduled for LINDA. Telemetry sinus rhythm. Feels much better and eager for discharge. Denies chest pain, palpitations or shortness of breath. Ambulating, tolerating exertion well. Denies lightheadedness, dizziness or focal deficits. 05/08/2025 LINDA yesterday completed, reporting aneurysmal intra-atrial septum with fenestrated septum and evidence of large PFO and ASD and bidirectional shunt.intact left atrial appendage with no evidence of thrombus. Mildly impaired LV function with a EF between 45 to 50%. Overall no significant valvular abnormalities noted. No pericardial effusion. N.P.O., scheduled for PFO closure today. Ambulatory .denies any new neurological symptoms. Antiplatelet therapy as per neurology and cardiology. NPO, PFO closure pending. 7225 underwent PFO closure yesterday , tolerated procedure well .denies chest pain, palpitations or shortness of breath. Ambulatory, denies lightheadedness, dizziness or focal deficits. Denies any new symptoms. significant clinical improvement. Cleared by cardiology and neurology for discharge with recommendations of dual antiplatelet therapy with Brilinta 90 mg bid x 30 days then 60 mg twice daily and aspirin EC 81 mg daily. Patient will be discharged home today in a stable condition with guarded prognosis. The impression and plan of care has been dictated as directed. : I performed a history and examination of this patient, discussed the same with the dictator. I agree with the dictator's note ,documented as a scribe. Any additional findings or plans will be noted. Patient Condition at Discharge: Stable Plan - Discharge Summary Discharge Rx Participant: Yes New Discharge Prescriptions: New Ticagrelor [Brilinta] 90 mg PO BID 30 Days #60 tab Pantoprazole [Protonix] 40 mg PO DAILY #30 tab Continue Atorvastatin [Lipitor] 40 mg PO HS #100 tab lisinopriL [Zestril] 20 mg PO BID metFORMIN HCL [Glucophage] 1,000 mg PO BID Metoprolol Tartrate [Lopressor] 50 mg PO BID-W/MEALS glipiZIDE XL [Glucotrol XL] 5 mg PO DAILY Nitroglycerin Sl Tabs [Nitrostat] 0.4 mg SL Q5M PRN PRN Reason: Chest Pain Aspirin 81 mg PO DAILY #0 Discontinued Clopidogrel [Plavix] 75 mg PO DAILY #100 tab Discharge Medication List Atorvastatin [Lipitor] 40 mg PO HS #100 tab 06/02/19 [Rx] Metoprolol Tartrate [Lopressor] 50 mg PO BID-W/MEALS 05/03/25 [History] Nitroglycerin Sl Tabs [Nitrostat] 0.4 mg SL Q5M PRN 05/03/25 [History] glipiZIDE XL [Glucotrol XL] 5 mg PO DAILY 05/03/25 [History] lisinopriL [Zestril] 20 mg PO BID 05/03/25 [History] metFORMIN HCL [Glucophage] 1,000 mg PO BID 05/03/25 [History] Aspirin 81 mg PO DAILY #0 05/09/25 [Rx] Pantoprazole [Protonix] 40 mg PO DAILY #30 tab 05/09/25 [Rx] Ticagrelor [Brilinta] 90 mg PO BID 30 Days #60 tab 05/09/25 [Rx] Follow up Appointment(s)/Referral(s): Rory Rand MD [STAFF PHYSICIAN] - 1 Week Luís Ma DO [Primary Care Provider] - 05/17/25 10:00 am Patient Instructions/Handouts: Stroke (DC), Heart Catheterization (DC), Patent [place] (DC) Activity/Diet/Wound Care/Special Instructions: Start Yaya tonsav Discharge Disposition: HOME WITH HOME HEALTH SERVICES
== END 2025-05-09 11:24 | disposition home health service (06) | DRG 982 ==
LOC: EC 14:04 → 3SCARD 17:04
PROVIDERS: ADMIT Family Medicine; ATTEND Family Medicine
PROC: B246ZZ4 Ultrasonography of Right and Left Heart, Transesophageal (ICD-10-PCS; principal; 2025-05-07 12:10)
PROC: B2141ZZ Fluoroscopy of Right Heart using Low Osmolar Contrast (ICD-10-PCS; 2025-05-08)
PROC: 02U53JZ Supplement Atrial Septum with Synthetic Substitute, Percutaneous Approach (ICD-10-PCS; 2025-05-08 13:30)
PROC: B246ZZ4 Ultrasonography of Right and Left Heart, Transesophageal (ICD-10-PCS; 2025-05-08 13:30)
DX: I63.40 Cerebral infarction due to embolism of unspecified cerebral artery (principal); G81.91 Hemiplegia, unspecified affecting right dominant side; I47.20 Ventricular tachycardia, unspecified; E11.65 Type 2 diabetes mellitus with hyperglycemia; I10 Essential (primary) hypertension; E66.9 Obesity, unspecified; I65.22 Occlusion and stenosis of left carotid artery; Q21.12 Patent foramen ovale; E11.9 Type 2 diabetes mellitus without complications; R29.702 NIHSS score 2; R29.810 Facial weakness; E78.5 Hyperlipidemia, unspecified; I25.10 Atherosclerotic heart disease of native coronary artery without angina pectoris; I44.0 Atrioventricular block, first degree; Z79.02 Long term (current) use of antithrombotics/antiplatelets; Z79.82 Long term (current) use of aspirin; Z79.84 Long term (current) use of oral hypoglycemic drugs; Z79.899 Other long term (current) drug therapy; Z87.891 Personal history of nicotine dependence; Z95.1 Presence of aortocoronary bypass graft; Z95.5 Presence of coronary angioplasty implant and graft; Z86.73 Personal history of transient ischemic attack (TIA), and cerebral infarction without residual deficits
CPT/HCPCS: 36415; 70450; 70496; 70498; 70551; 71046; 80053; 80061; 82550; 83036; 84484; 85025; 85610; 85730; 93005; 93306; 93312; 93320; 93325; 93880; 96374; 99285